=== PATIENT | female | born 1935 | race Caucasian/White ===

== ENCOUNTER 2020-07-11 14:45 | IRF | payer MEDICARE, SELFPAY ==
--- NOTE | ~2020-07-11 | CT_ITS ---
EXAMINATION: CT brain wo con DATE: 07/19/2020 15:05 INDICATION: Mental status change. TECHNIQUE: Computed tomography (CT) of the head was performed without intravenous contrast. The mA wa s adjusted according to patient size. Iterative reconstruction technique was employed. The dose-lengt h product was 605.33 mGy-cm. COMPARISON: None FINDINGS: There is a 5.4 x 3.7 cm hyperdense acute hematoma in right temporal occipital region with s urrounding low-attenuation vasogenic edema. There are scattered areas of low attenuation in the cereb ral white matter. There is a 10 mm hyperdense extra-axial mass inferior to left frontal lobe abutting the falx, consistent with a meningioma. There is no acute ischemic infarct. There is 4 mm leftward m idline shift at the foramen of Monro. The paranasal sinuses are clear. The mastoid air cells are norm al. There are likely changes of ocular lens replacement surgeries. IMPRESSION: 1. Acute intracerebral hematoma in right temporal occipital region. 2. Mild nonspecific cerebral white matter disease, which likely represents chronic small vessel ische beth disease. 3. 10 mm hyperdense extra-axial mass inferior to left frontal lobe abutting the falx, consistent with a meningioma. Reviewed, dictated and finalized at location A. IMPRESSION: 1. Acute intracerebral hematoma in right temporal occipital region. 2. 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 3. 10 mm hyperdense extra-axial mass inferior to left frontal lobe abutting the falx, consistent with a meningioma.
--- NOTE | 2020-07-11 15:13 | ADMGEN ---
This patient, Alba Renteria, was admitted to [facility] Room 224-02. Patient/family oriented to hospital policies and general routines including ID bracelet, bed and alarms, visiting hours, pain management, procedures, bathroom and other care routines, personal items, smoking policy, room service/diet, and visiting hours. Valuables list has been completed. Information on how to activate the Rapid Response Team has been discussed. Patient/Family are encouraged to report perceived risks to care and to ask questions if they do not understand what they are told or what they should do.
[2020-07-11 15:15] VITALS: BMI 20.1
[2020-07-11 15:16] VITALS: BP 153/62; PULSE 82; RESP 20; TEMP 37.1; O2SAT 96
[2020-07-11 17:00] VITALS: BMI 20.1
[2020-07-11 19:10] LABS: Prothrombin Time 12.6 Seconds (11.1-14.7)
[2020-07-11] MEDS: FLUOROMETHOLONE 0.1% OP SUSP 5 ML BTL 1 DROP EACH EYE (20:55)
[2020-07-11] MEDS: HEPARIN SODIUM 5,000 UNITS/ML VIAL 5000 UNITS SUB-Q (20:55)
[2020-07-11] MEDS: SENNOSIDES 8.6 MG TABLET PO (20:56)
[2020-07-11 22:00] VITALS: BP 127/63; PULSE 89; RESP 18; TEMP 37; O2SAT 96
[2020-07-11] MEDS: ACETAMINOPHEN 325 MG TABLET 650 MG PO (22:31)
[2020-07-12 04:37] LABS: Basophils Absolute Auto 0.1 K/mm3 (0.0-0.1); Basophils Percent Auto 0.8 % (0.2-1.2); Eosinophils Absolute Auto 0.2 K/mm3 (0-0.3); Hematocrit 39.5 % (37.0-47.0); Hemoglobin 13.6 g/dL (12.0-15.0); Immature Granulocyte Absolute 0.05 K/mm3 (0.00-0.031); Immature Granulocyte Percent A 0.6 % (0-0.5); Lymphocytes Absolute Auto 1.35 K/mm3 (0.9-3.2); Mean Corpuscular HGB Conc 34.4 g/dl (32-36); Mean Corpuscular Hemoglobin 31.3 pg (26-34); Mean Corpuscular Volume 90.8 fl (80-100); Mean Platelet Volume 8.5 fl (7.4-10.4); Monocytes Absolute Auto 1.1 K/mm3 (0.1-0.6); Monocytes Percent Auto 14.2 % (2.6-8.5); Neutrophils Absolute Auto 5.1 K/mm3 (1.3-6.7); Neutrophils Percent Auto 64.4 % (45.5-73.1); Platelet Count Result 309 k/mm3 (150-375); Red Blood Count 4.35 M/mm3 (4.2-5.4); Red Cell Distribution Width 13.5 % (11.5-14.5); White Blood Count 7.9 K/mm3 (4.5-10.0)
[2020-07-12 04:47] LABS: Prothrombin Time 12.4 Seconds (11.1-14.7)
[2020-07-12 04:53] LABS: Anion Gap 5 mmol/L (8-16); Blood Urea Nitrogen 11 mg/dL (7-17); Calcium 9.7 mg/dL (8.4-10.2); Carbon Dioxide 27 mmol/L (22-30); Chloride 96 mmol/L (98-107); Cholesterol 229 mg/dL (0-200); Estimated CRCL calculation 61 ml/min; Estimated Glomerular Filt Rate > 60; Glucose 113 mg/dL (65-105); HDL Direct 67 mg/dL; Potassium 4.1 mmol/L (3.4-5.0); Sodium 128 mmol/L (137-145); Triglycerides 172 mg/dL (<150)
[2020-07-12 05:04] LABS: LDL Cholesterol Direct 124 mg/dL
[2020-07-12 05:51] VITALS: BP 158/67; PULSE 90; RESP 14; TEMP 36.8; O2SAT 97
[2020-07-12] MEDS: polyethylene glycoL 3350 17 GM POWD.PACK PO (09:27)
[2020-07-12] MEDS: DOCUSATE SODIUM 100 MG CAPSULE PO (09:27)
[2020-07-12 09:28] VITALS: PULSE 88
[2020-07-12] MEDS: atenoloL 25 MG TABLET PO (09:28)
[2020-07-12] MEDS: POTASSIUM CHLORIDE 10 MEQ TABLET.ER PO (09:29)
[2020-07-12] MEDS: CHOLECALCIFEROL 1,000 UNITS TABLET 2000 UNITS PO (09:29)
[2020-07-12] MEDS: SENNOSIDES 8.6 MG TABLET PO ×2 (09:29→20:28)
[2020-07-12] MEDS: HEPARIN SODIUM 5,000 UNITS/ML VIAL 5000 UNITS SUB-Q ×2 (09:30→20:28)
[2020-07-12] MEDS: FLUOROMETHOLONE 0.1% OP SUSP 5 ML BTL 1 DROP EACH EYE ×2 (09:30→20:27)
[2020-07-12] MEDS: ROSUVASTATIN 5 MG TABLET PO (09:30)
[2020-07-12] MEDS: VITAMIN B COMPLEX/VIT C CAPSULE 1 EACH PO (09:30)
--- NOTE | 2020-07-12 10:00 | PM.IMHP ---
H&P: HPI History of Present Illness Date/Time: 07/12/20 12:19 Chief complaint: TRAUMATIC CLOSED HEAD INJURY Narrative: Alba Renteria is a 84 year old female She is admitted to our acute rehab with rehab impairment category of brain dysfunction/traumatic The etiologic diagnosis is large right parieto-occipital intracranial hemorrhage with intraventricular hemorrhage extension into the right lateral ventricle with left midline shift. The patient was seen [id number] at 10:00 a.m. on July 12, 2020 She is an 84-year-old right-handed woman with a past medical history of mechanical aortic valve replacement, and myocardial infarction who presented to a local hospital on June 28, 2020 with severe headache. Head CT showed a large right parieto-occipital intraparenchymal hemorrhage with intraventricular hemorrhage. The patient was in her usual state of health until the day prior to admission. Historically she had hit her forehead when she opened the car trunk a few days prior. On June 27, 2020 she started having headaches and associated nausea and vomiting. Then she had multiple episodes of emesis and had difficulty dialing her daughter's phone numbers. She was transferred to [facility] on June 28, 2020 for neurosurgery evaluation. [place] coma scale on arrival to [place] was 15. She was given vitamin K and Cardiology was consulted to discuss anticoagulation and recommended to stay off anticoagulation for 24 hours. However seems like the patient has not been restarted on the warfarin for the right reason which is on hold. Follow-up CT scan of the head on June 30 was stable on July [address] was slightly worsened but still stable. On July 03 her diet was advanced to dysphagia 3 with regular liquids. On July 05, 2020 brain MRI was performed which most likely was similar to the previous scans. The hospitalization was significant for cerebral edema nausea and vomiting hyponatremia hyperkalemia pain and hemiparesis. The cerebral edema is stable nausea and vomiting has resolved electrolyte imbalance since our monitor and related or rib beaded repeated as [place]. A endocrinology was consulted and recommended 1800 milliliter fluid stick garcia with strict I&O and BMP monitoring pain is controlled on oral and just is and she is requiring physical in a compression therapy for the significant left-sided hemiparesis. Physical examination continues to reveal neglect hemianopsia and hemiparesis on the left side the patient is discharged to us with subcutaneous heparin for DVT prophylaxis The patient has not traveled outside the [place] or had contact with someone who is ill that has traveled outside the [place] in the past 21 days. The patient has not traveled on an area of the [place] that is experiencing no transmission of the Coronavirus and has not had close personal contact with anyone that has. The patient does not have a fever. The patient is not experiencing lower respiratory illness symptoms Therapy was initiated the acute care facility and the patient was transferred to us from [facility] on June 21, 2020. The patient has had no major surgery in the 100 days prior to admission. The patient has had no falls in the past year. The patient has had no falls with injury in the past year. 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 The patient lives alone. The patient lives independently in a 1 level home with the threshold and 1 step to enter. She was completely independent prior with quad cane in the community and a Rollator at home. She was able to perform all her housekeeping laundry cooking and driving independently. Her son is a physical therapist and stated the patient will have whate
[2020-07-12 12:08] VITALS: BMI 20.1
[2020-07-12 14:00] VITALS: BP 116/41; PULSE 71; RESP 18; TEMP 37.3; O2SAT 95
--- NOTE | 2020-07-12 14:38 | RPD ---
Addendum entered by Ashleigh Houser 07/12/20 14:45: The patient presents to rehab with a large right parieto-occipital intracranial hemorrhage with intraventricular hemorrhage extension into the right lateral ventricule with left midline shift. Comorbidities include myocardial infarction, hypertension, left hemiparesis, left hemianopsia, left-side neglect, cerebral edema, hyperkalemia, and hyponatremia.The complexity of the patient's medical management, nursing, and therapy needs require an inpatient rehab hospital stay with a physician-led interdisciplinary team approach. The patient?s needs will be best met in an intensive program vs. at a lower level of care. The patient requires physician services for neurology services, medical oversight, and coordination of care. The patient needs physician monitoring and treatment of hyperkalemia, hyponatremia, monitoring for adverse reactions to new medications, monitoring of infection, and pain control. The patient requires nursing services for frequent neuro checks, anticoagulation therapy, medication management and education, pressure relief and skin care management, monitoring of labs, bowel and bladder training, and fall/safety precautions Original Note: INDIVIDUALIZED PLAN OF CARE FOR Alba Renteria Brief Synthesis of Pre-Admission Screen, Post-Admission Evaluation and Therapy Evaluations: The patient presents to rehab with a large right parieto-occipital intracranial hemorrhage with intraventricular hemorrhage extension into the right lateral ventricule with left midline shift. Comorbidities include myocardial infarction, hypertension, left hemiparesis, left hemianopsia, left-side neglect, cerebral edema, hyperkalemia, and hyponatremia. Deficits include:ADLs, Balance, Cognition, Endurance, Family Training/Education, Mobility, Pain Management, ROM, Safety, Speech, Strength, and Transfers. Dip Lube Operator/Case Management for: Discharge Planning and Patient/Family Counseling Physical Therapy: 5 days per week for 75 minutes. Treatments may include: Therapeutic Exercise, Gait Training, Neuromuscular Re-education, Transfer Training, Community Reintegration, Bed Mobility, Patient/Family Education, Wheelchair Mobility Group Therapy/Concurrent Therapy Rationales: -Improve attention span during functional activities in a distracted environment. -Enhance problem solving and/or adequate judgment skills during functional activities in a distracted environment. -Promote increased safety awareness in a distracted environment to reduce fall risk with functional tasks, transfers, and ambulation to allow a more safe, self-sufficient return to the home environment. -Improve dynamic balance skills to promote safety and independence with functional activities in a distracted environment for maximum gain. Occupational Therapy: 5 days per week for 75 minutes. Treatments may include: Therapeutic Exercise, Therapeutic Activity, Cognitive Training, Self-Care Transfer Training, Community Reintegration, Home Management, Patient/Family Education, Wheelchair Mobility Training, Energy Conservation Training Group Therapy/Concurrent Therapy Rationales: -Allow therapist to observe and teach generalization and carry-over of skills learned in individual therapy. -Enhance problem solving and sequencing skills during therapeutic activities in a distracted environment. -Promote increased safety awareness in a realistic setting to reduce fall risk with functional tasks due to visual and verbal distractions. -Increase functional level with ADLs, ADL transfers and use of adaptive equipment through therapeutic activities with others while promoting safety to allow a more safe, self-sufficient return home. Speech Therapy: 5 days per week for 30 minutes. Treatments may include: Dysphasia Therapy, Speech/Language/Communication Therapy, Cognitive Training, Patient/Family Education Group Therapy/Concurrent Therapy - Rationale: -Allow therapist to obs
[2020-07-12 21:22] VITALS: BP 143/46; PULSE 64; RESP 18; TEMP 36.9; O2SAT 99
[2020-07-13 05:51] VITALS: BP 133/51; PULSE 69; RESP 18; TEMP 36.4; O2SAT 98
[2020-07-13] MEDS: LIDOCAINE 5% PATCH 1 PATCH TOPICAL (09:59)
[2020-07-13 10:02] VITALS: PULSE 69
[2020-07-13] MEDS: ROSUVASTATIN 5 MG TABLET PO (10:02)
[2020-07-13] MEDS: SENNOSIDES 8.6 MG TABLET PO ×2 (10:02→20:41)
[2020-07-13] MEDS: POTASSIUM CHLORIDE 10 MEQ TABLET.ER PO (10:02)
[2020-07-13] MEDS: atenoloL 25 MG TABLET PO (10:02)
[2020-07-13] MEDS: DOCUSATE SODIUM 100 MG CAPSULE PO (10:03)
[2020-07-13] MEDS: VITAMIN B COMPLEX/VIT C CAPSULE 1 EACH PO (10:03)
[2020-07-13] MEDS: HEPARIN SODIUM 5,000 UNITS/ML VIAL 5000 UNITS SUB-Q ×2 (10:03→20:40)
[2020-07-13] MEDS: CHOLECALCIFEROL 1,000 UNITS TABLET 2000 UNITS PO (10:03)
[2020-07-13] MEDS: FLUOROMETHOLONE 0.1% OP SUSP 5 ML BTL 1 DROP EACH EYE ×2 (10:04→20:41)
[2020-07-13] MEDS: OPTI-GEN TAB 1 TABLET PO (10:05)
--- NOTE | 2020-07-13 12:47 | WPDNEURORHBP ---
Subjective Date/time seen: 07/13/20 12:47 84 years old lady admitted to the acute rehab with the category of brain dysfunction traumatic in nature and with large right parieto-occipital intracranial bleed extension into the intraventricular area particularly right lateral ventricle and with resultant left midline shift in addition to the history of 1. Mechanical aortic valve replacement 2. Myocardial infarction. Documented cerebral edema by MRI with fluid restriction at present receiving compression therapy and physical therapy for left hemiparesis Review of Systems Review of Systems: All systems reviewed & are unremarkable except as noted in HPI and below Functional Status Ambulation Ability Ability to Ambulate 10 Feet: Moderate Assistance X 1 Ambulation Assistive Devices: Walker, Wheeled Transfers Ability Ability to Transfer In/Out of Chair: Moderate Assistance X 1 Exam Narrative: Exam Narrative: examination reveals her to be awake alert cooperative in no obvious acute distress with bilateral decreased visual acuity secondary to corneal transplant though she was unable to recall most of the incidence and past neck is supple with no JVD no meningeal signs heart regular with murmur lungs clear with no crepitations or rhonchi abdomen soft nontender normal bowel sounds neurologically she is awake alert has difficulties in cognition has left-sided homonomous hemianopia and left hemiparesis Objective Data Vital Signs Vital Signs: Vital Signs - 24 hr 07/12/20 14:00 07/12/20 21:22 07/13/20 05:51 Temperature 37.3 C 36.9 C 36.4 C Pulse Rate 71 64 69 Respiratory Rate 18 18 18 Blood Pressure 116/41 L 143/46 H 133/51 L Pulse Oximetry 95 99 98 07/13/20 10:02 Temperature Pulse Rate 69 Respiratory Rate Blood Pressure Pulse Oximetry Intake/Output Intake/Output: Intake & Output 07/10/20 07/11/20 07/12/20 07/13/20 23:59 23:59 23:59 23:59 Intake Total 120 720 120 Balance 120 720 120 Meds/Results Medications: Active Medications Generic Name Dose Route Start Last Admin Trade Name Freq PRN Reason Stop Dose Admin Acetaminophen 650 mg 07/11/20 18:25 07/11/20 22:31 Tylenol Tablet PO 650 mg Q6H PRN Administration Pain (Scale Score 1-3) Artificial Tears 1 drop 07/11/20 18:25 EACH EYE BID PRN Dry Eye(S) Atenolol 25 mg 07/12/20 09:00 07/13/20 10:02 Tenormin PO 25 mg DAILY ARI Administration Docusate Sodium 100 mg 07/12/20 09:00 07/13/20 10:03 Colace Capsule PO 100 mg DAILY ARI Administration Fluorometholone 1 drop 07/11/20 21:00 07/13/20 10:04 Fml Liquifilm 0.1% Op Susp EACH EYE 1 drop Q12HR ARI Administration Heparin Sodium (Porcine) 5,000 units 07/11/20 21:00 07/13/20 10:03 Heparin Sodium SUB-Q 5,000 units Q12HR ARI Administration Lidocaine 1 patch 07/11/20 18:25 07/13/20 09:59 Lidoderm TOPICAL 1 patch DAILY PRN Administration Pain Multivitamins/Minerals 1 tablet 07/13/20 09:00 07/13/20 10:05 Ocuvite PO 1 tablet QAM ARI Administration Nitroglycerin 0.4 mg 07/11/20 18:25 Nitrostat Subl 0.4 Mg (1/150) SUBLINGUAL Q5MIN PRN Chest Pain Oxycodone HCl 2.5 mg 07/11/20 18:25 Roxicodone Ir Tablet PO Q4H PRN Pain, Moderate Polyethylene Glycol 17 gm 07/12/20 09:00 07/13/20 10:03 Miralax PO Not Given DAILY [facility] Potassium Chloride 10 meq 07/12/20 09:00 07/13/20 10:02 Kcl Tablet PO 10 meq DAILY ARI Administration Rosuvastatin Calcium 5 mg 07/12/20 09:00 07/13/20 10:02 Crestor PO 5 mg DAILY ARI Administration Senna 8.6 mg 07/11/20 21:00 07/13/20 10:02 Senokot Tablet PO 8.6 mg Q12HR [facility] Administration Vitamin B Complex/Vitamin C 1 each 07/12/20 09:00 07/13/20 10:03 Allbee W/C PO 08/11/20 09:01 1 each DAILY [facility] Administration Vitamin D 2,000 units 07/12/20 09:00 07/13/20 10:03 Vitamin D PO 2,000 units DAILY [facility] Ad
[2020-07-13 14:00] VITALS: BP 122/50; PULSE 61; RESP 18; TEMP 37.1; O2SAT 96
[2020-07-13 21:08] VITALS: BP 146/43; PULSE 61; RESP 18; TEMP 36.6; O2SAT 97
[2020-07-14 05:13] VITALS: BP 146/50; PULSE 67; RESP 18; TEMP 36.9; O2SAT 97
[2020-07-14 07:33] VITALS: O2SAT 93
[2020-07-14 08:38] VITALS: PULSE 67
[2020-07-14] MEDS: atenoloL 25 MG TABLET PO (08:38)
[2020-07-14] MEDS: CHOLECALCIFEROL 1,000 UNITS TABLET 2000 UNITS PO (08:38)
[2020-07-14] MEDS: DOCUSATE SODIUM 100 MG CAPSULE PO (08:39)
[2020-07-14] MEDS: ROSUVASTATIN 5 MG TABLET PO (08:39)
[2020-07-14] MEDS: SENNOSIDES 8.6 MG TABLET PO ×2 (08:39→22:10)
[2020-07-14] MEDS: VITAMIN B COMPLEX/VIT C CAPSULE 1 EACH PO (08:39)
[2020-07-14] MEDS: POTASSIUM CHLORIDE 10 MEQ TABLET.ER PO (08:39)
[2020-07-14] MEDS: OPTI-GEN TAB 1 TABLET PO (08:39)
[2020-07-14] MEDS: FLUOROMETHOLONE 0.1% OP SUSP 5 ML BTL 1 DROP EACH EYE ×2 (08:40→22:10)
[2020-07-14] MEDS: HEPARIN SODIUM 5,000 UNITS/ML VIAL 5000 UNITS SUB-Q ×2 (08:40→22:10)
[2020-07-14] MEDS: ACETAMINOPHEN 325 MG TABLET 650 MG PO (08:42)
[2020-07-14] MEDS: polyethylene glycoL 3350 17 GM POWD.PACK PO (08:50)
[2020-07-14 14:00] VITALS: BP 102/41; PULSE 64; RESP 18; TEMP 37.3; O2SAT 97
[2020-07-14 22:00] VITALS: BP 154/59; PULSE 64; RESP 18; TEMP 36.5; O2SAT 99
[2020-07-15 06:00] VITALS: BP 138/77; PULSE 83; RESP 18; TEMP 36.6; O2SAT 98
[2020-07-15 08:54] VITALS: PULSE 83
[2020-07-15] MEDS: CHOLECALCIFEROL 1,000 UNITS TABLET 2000 UNITS PO (08:54)
[2020-07-15] MEDS: atenoloL 25 MG TABLET PO (08:54)
[2020-07-15] MEDS: OPTI-GEN TAB 1 TABLET PO (08:55)
[2020-07-15] MEDS: HEPARIN SODIUM 5,000 UNITS/ML VIAL 5000 UNITS SUB-Q ×2 (08:55→21:34)
[2020-07-15] MEDS: FLUOROMETHOLONE 0.1% OP SUSP 5 ML BTL 1 DROP EACH EYE ×2 (08:55→21:33)
[2020-07-15] MEDS: SENNOSIDES 8.6 MG TABLET PO ×2 (08:55→21:34)
[2020-07-15] MEDS: polyethylene glycoL 3350 17 GM POWD.PACK PO (08:55)
[2020-07-15] MEDS: ROSUVASTATIN 5 MG TABLET PO (08:55)
[2020-07-15] MEDS: POTASSIUM CHLORIDE 10 MEQ TABLET.ER PO (08:55)
[2020-07-15] MEDS: DOCUSATE SODIUM 100 MG CAPSULE PO (08:55)
[2020-07-15] MEDS: VITAMIN B COMPLEX/VIT C CAPSULE 1 EACH PO (08:56)
--- NOTE | 2020-07-15 10:25 | WPDNEURORHBP ---
Subjective Date/time seen: 07/15/20 10:25 84 years old lady with traumatic brain dysfunction and large right parieto-occipital intracranial bleed extending into the ventricular system also with history of underlying mechanical aortic valve, myocardial infarction receiving physical therapy for left hemiparesis walking with moderate assistance of 1/10 feet using the wheel walker Review of Systems Review of Systems: All systems reviewed & are unremarkable except as noted in HPI and below Functional Status Ambulation Ability Ability to Ambulate 10 Feet: Moderate Assistance X 1 Ambulation Assistive Devices: Walker, Wheeled Transfers Ability Ability to Transfer In/Out of Chair: Moderate Assistance X 1 Exam Narrative: Exam Narrative: examination reveals her to be awake alert cooperative able to follow the instruction ear nose throat examination normal neck is supple heart regular lungs clear neurological examination showed reveals her to have left hemiparesis with left homonymous hemianopia but she is very cooperative and involved in the physical therapy Objective Data Vital Signs Vital Signs: Vital Signs - 24 hr 07/14/20 14:00 07/14/20 22:00 07/15/20 06:00 Temperature 37.3 C 36.5 C 36.6 C Pulse Rate 64 64 83 Respiratory Rate 18 18 18 Blood Pressure 102/41 L 154/59 H 138/77 Pulse Oximetry 97 99 98 07/15/20 08:54 Temperature Pulse Rate 83 Respiratory Rate Blood Pressure Pulse Oximetry Intake/Output Intake/Output: Intake & Output 07/12/20 07/13/20 07/14/20 07/15/20 23:59 23:59 23:59 23:59 Intake Total 720 360 80 100 Balance 720 360 80 100 Meds/Results Medications: Active Medications Generic Name Dose Route Start Last Admin Trade Name Albaroq PRN Reason Stop Dose Admin Acetaminophen 650 mg 07/11/20 18:25 07/14/20 08:42 Tylenol Tablet PO 650 mg Q6H PRN Administration Pain (Scale Score 1-3) Artificial Tears 1 drop 07/11/20 18:25 EACH EYE BID PRN Dry Eye(S) Atenolol 25 mg 07/12/20 09:00 07/15/20 08:54 Tenormin PO 25 mg DAILY ARI Administration Docusate Sodium 100 mg 07/12/20 09:00 07/15/20 08:55 Colace Capsule PO 100 mg DAILY ARI Administration Fluorometholone 1 drop 07/11/20 21:00 07/15/20 08:55 Fml Liquifilm 0.1% Op Susp EACH EYE 1 drop Q12HR ARI Administration Heparin Sodium (Porcine) 5,000 units 07/11/20 21:00 07/15/20 08:55 Heparin Sodium SUB-Q 5,000 units Q12HR ARI Administration Lidocaine 1 patch 07/11/20 18:25 07/13/20 09:59 Lidoderm TOPICAL 1 patch DAILY PRN Administration Pain Multivitamins/Minerals 1 tablet 07/13/20 09:00 07/15/20 08:55 Ocuvite PO 1 tablet QAM ARI Administration Nitroglycerin 0.4 mg 07/11/20 18:25 Nitrostat Subl 0.4 Mg (1/150) SUBLINGUAL Q5MIN PRN Chest Pain Oxycodone HCl 2.5 mg 07/11/20 18:25 Roxicodone Ir Tablet PO Q4H PRN Pain, Moderate Polyethylene Glycol 17 gm 07/12/20 09:00 07/15/20 08:55 Miralax PO 17 gm DAILY ARI Administration Potassium Chloride 10 meq 07/12/20 09:00 07/15/20 08:55 Kcl Tablet PO 10 meq DAILY ARI Administration Rosuvastatin Calcium 5 mg 07/12/20 09:00 07/15/20 08:55 Crestor PO 5 mg DAILY ARI Administration Senna 8.6 mg 07/11/20 21:00 07/15/20 08:55 Senokot Tablet PO 8.6 mg Q12HR ARI Administration Vitamin B Complex/Vitamin C 1 each 07/12/20 09:00 07/15/20 08:56 Allbee W/C PO 08/11/20 09:01 1 each DAILY ARI Administration Vitamin D 2,000 units 07/12/20 09:00 07/15/20 08:54 Vitamin D PO 2,000 units DAILY ARI Administration Warfarin Sodium 6 mg 07/12/20 09:00 Coumadin PO DAILY ARI Progress Note: A&P Assessment and Plan (1) Hyponatremia: Code(s): E87.1 - Hypo-osmolality and hyponatremia Status: Acute (2) Hypertension: Code(s): I10 - Essential (primary) hypertension Status: Acute (3) Homo
--- NOTE | 2020-07-15 13:32 | PCDIET ---
Nutrition Follow-Up Complete: Nutrition Diagnosis: Inadequate oral intake r/t reduced appetite as evidenced by 98% of IBW and PO intake of 10% Nutrition Goal: Intake of 50% of meals and supplements to maintain wt Goal met. Patient consuming 75-100% of most meals on regular diet with 800mL fluid restriction. Patient c/o Ensure being too sweet and has not been taking it. Recommend stopping Ensure Compact due to patient refusal which will also allow increased intake of other fluids. Last recorded weight is 53.3 kg. Recommend obtaining new weight. Bowel Motility: Last BM on 07/14/20 per nursing flowsheet. Labs Reviewed: No new labs available. Meds Noted: Colace, Heparin, Ocuvite, Miralax, KCl, Senna, Vitamin B Complex, Vitamin D, Coumadin Additional Notes: No documented skin breakdown. Will continue to monitor with same goal. Nutrition Monitoring and Evaluation: Follow up in 5 days.
[2020-07-15 14:00] VITALS: BP 119/86; PULSE 72; RESP 16; TEMP 37.2; O2SAT 96
[2020-07-15] MEDS: ACETAMINOPHEN 325 MG TABLET 650 MG PO (17:42)
[2020-07-15 21:27] VITALS: BP 132/58; PULSE 59; RESP 18; TEMP 36.8; O2SAT 98
[2020-07-15] MEDS: oxyCODONE HCL (*CRX) 2.5 MG TAB IR PO (21:38)
[2020-07-16 05:11] VITALS: BP 146/48; PULSE 72; RESP 18; TEMP 36.8; O2SAT 99
[2020-07-16] MEDS: OPTI-GEN TAB 1 TABLET PO (08:38)
[2020-07-16] MEDS: DOCUSATE SODIUM 100 MG CAPSULE PO (08:38)
[2020-07-16] MEDS: CHOLECALCIFEROL 1,000 UNITS TABLET 2000 UNITS PO (08:38)
[2020-07-16] MEDS: SENNOSIDES 8.6 MG TABLET PO ×2 (08:38→20:53)
[2020-07-16 08:39] VITALS: PULSE 72
[2020-07-16] MEDS: polyethylene glycoL 3350 17 GM POWD.PACK PO (08:39)
[2020-07-16] MEDS: HEPARIN SODIUM 5,000 UNITS/ML VIAL 5000 UNITS SUB-Q ×2 (08:39→20:53)
[2020-07-16] MEDS: ROSUVASTATIN 5 MG TABLET PO (08:39)
[2020-07-16] MEDS: atenoloL 25 MG TABLET PO (08:39)
[2020-07-16] MEDS: POTASSIUM CHLORIDE 10 MEQ TABLET.ER PO (08:39)
[2020-07-16] MEDS: FLUOROMETHOLONE 0.1% OP SUSP 5 ML BTL 1 DROP EACH EYE ×2 (08:39→20:53)
[2020-07-16] MEDS: VITAMIN B COMPLEX/VIT C CAPSULE 1 EACH PO (08:39)
[2020-07-16] MEDS: ACETAMINOPHEN 325 MG TABLET 650 MG PO (11:58)
[2020-07-16 14:00] VITALS: BP 120/54; PULSE 58; RESP 16; TEMP 36.5; O2SAT 98
--- NOTE | 2020-07-16 14:39 | WPDNEURORHBP ---
Subjective Date/time seen: 07/16/20 14:39 Interval history: this 84-year-old woman is here because of traumatic closed head injury she has the doing fairly well decent the left-sided weakness and left-sided homonymous hemianopsia is improving she denies any headache nausea vomiting chest pain or shortness of breath the lab analysis fairly good this was shared to her family also Review of Systems Review of Systems: All systems reviewed & are unremarkable except as noted in HPI and below Functional Status Ambulation Ability Ability to Ambulate 10 Feet: Contact Guard Ability to Ambulate 50 Feet With 2 Turns: Contact Guard Ability to Ambulate 150 Feet: Contact Guard Ambulation Assistive Devices: Walker, Wheeled Transfers Ability Ability to Transfer In/Out of Chair: Moderate Assistance X 1 Exam Const: General: comfortable and no acute distress HENMT: General nose exam: Normal nares present Mouth: Yes moist mucous membranes Eyes: General: appearance normal, both eyes and all related structures Neck: Neck: supple and no JVD Resp: Effort & Inspection: normal respiratory effort Auscultation: clear to auscultation bilaterally Cardio: Rate: regular rate Rhythm: regular rhythm GI: GI Palp: Yes Soft to palpation Auscultation: normal bowel sounds Skin: General skin exam: normal color and no rashes or lesions noted Neuro: Other: patient is awake alert following commands left-sided deficit is improving Extrem: General: normal to inspection Psych: Mental Status: mental status grossly normal Objective Data Vital Signs Vital Signs: Vital Signs - 24 hr 07/15/20 21:27 07/16/20 05:11 07/16/20 08:39 Temperature 36.8 C 36.8 C Pulse Rate 59 L 72 72 Respiratory Rate 18 18 Blood Pressure 132/58 L 146/48 H Pulse Oximetry 98 99 07/16/20 14:00 Temperature 36.5 C Pulse Rate 58 L Respiratory Rate 16 Blood Pressure 120/54 L Pulse Oximetry 98 Intake/Output Intake/Output: Intake & Output 07/13/20 07/14/20 07/15/20 07/16/20 23:59 23:59 23:59 23:59 Intake Total 360 80 240 240 Balance 360 80 240 240 Meds/Results Medications: Active Medications Generic Name Dose Route Start Last Admin Trade Name Freq PRN Reason Stop Dose Admin Acetaminophen 650 mg 07/11/20 18:25 07/16/20 11:58 Tylenol Tablet PO 650 mg Q6H PRN Administration Pain (Scale Score 1-3) Artificial Tears 1 drop 07/11/20 18:25 EACH EYE BID PRN Dry Eye(S) Atenolol 25 mg 07/12/20 09:00 07/16/20 08:39 Tenormin PO 25 mg DAILY ARI Administration Docusate Sodium 100 mg 07/12/20 09:00 07/16/20 08:38 Colace Capsule PO 100 mg DAILY ARI Administration Fluorometholone 1 drop 07/11/20 21:00 07/16/20 08:39 Fml Liquifilm 0.1% Op Susp EACH EYE 1 drop Q12HR ARI Administration Heparin Sodium (Porcine) 5,000 units 07/11/20 21:00 07/16/20 08:39 Heparin Sodium SUB-Q 5,000 units Q12HR ARI Administration Lidocaine 1 patch 07/11/20 18:25 07/13/20 09:59 Lidoderm TOPICAL 1 patch DAILY PRN Administration Pain Multivitamins/Minerals 1 tablet 07/13/20 09:00 07/16/20 08:38 Ocuvite PO 1 tablet QAM ARI Administration Nitroglycerin 0.4 mg 07/11/20 18:25 Nitrostat Subl 0.4 Mg (1/150) SUBLINGUAL Q5MIN PRN Chest Pain Oxycodone HCl 2.5 mg 07/11/20 18:25 07/15/20 21:38 Roxicodone Ir Tablet PO 2.5 mg Q4H PRN Administration Pain, Moderate Polyethylene Glycol 17 gm 07/12/20 09:00 07/16/20 08:39 Miralax PO 17 gm DAILY ARI Administration Potassium Chloride 10 meq 07/12/20 09:00 07/16/20 08:39 Kcl Tablet PO 10 meq DAILY ARI Administration Rosuvastatin Calcium 5 mg 07/12/20 09:00 07/16/20 08:39 Crestor PO 5 mg DAILY ARI Administration Senna 8.6 mg 07/11/20 21:00 07/16/20 08:38 Senokot Tablet PO 8.6 mg Q12HR ARI Administration Vitamin B Complex/Vitamin C 1 each 07/12/20 09:00 07/16/20 08:39
[2020-07-16] MEDS: oxyCODONE HCL (*CRX) 2.5 MG TAB IR PO (20:53)
[2020-07-16 21:31] VITALS: BP 139/63; PULSE 67; RESP 18; TEMP 36.9; O2SAT 96
[2020-07-17 06:00] VITALS: BP 161/58; PULSE 73; RESP 18; TEMP 36.7; O2SAT 99
[2020-07-17 09:14] VITALS: PULSE 73
[2020-07-17] MEDS: atenoloL 25 MG TABLET PO (09:14)
[2020-07-17] MEDS: FLUOROMETHOLONE 0.1% OP SUSP 5 ML BTL 1 DROP EACH EYE ×2 (09:15→21:45)
[2020-07-17] MEDS: CHOLECALCIFEROL 1,000 UNITS TABLET 2000 UNITS PO (09:15)
[2020-07-17] MEDS: DOCUSATE SODIUM 100 MG CAPSULE PO (09:15)
[2020-07-17] MEDS: HEPARIN SODIUM 5,000 UNITS/ML VIAL 5000 UNITS SUB-Q ×2 (09:16→21:45)
[2020-07-17] MEDS: polyethylene glycoL 3350 17 GM POWD.PACK PO (09:16)
[2020-07-17] MEDS: OPTI-GEN TAB 1 TABLET PO (09:16)
[2020-07-17] MEDS: ROSUVASTATIN 5 MG TABLET PO (09:16)
[2020-07-17] MEDS: POTASSIUM CHLORIDE 10 MEQ TABLET.ER PO (09:16)
[2020-07-17] MEDS: SENNOSIDES 8.6 MG TABLET PO ×2 (09:17→21:46)
[2020-07-17] MEDS: VITAMIN B COMPLEX/VIT C CAPSULE 1 EACH PO (09:17)
[2020-07-17 14:00] VITALS: BP 129/48; PULSE 68; RESP 20; TEMP 37.1; O2SAT 98
--- NOTE | 2020-07-17 15:08 | WPDNEURORHBP ---
Subjective Date/time seen: 07/17/20 15:08 Interval history: this 84-year-old woman is here because of traumatic closed head injury/intracranial hemorrhage she denies any headache nausea vomiting chest pain or shortness of breath and the weakness is improving However she is complaining of fever blister and she is asking for Zocor ox as it has been prescribed in the past by her primary care physician and also will treated locally Review of Systems Review of Systems: All systems reviewed & are unremarkable except as noted in HPI and below Functional Status Ambulation Ability Ability to Ambulate 10 Feet: Independent Ability to Ambulate 50 Feet With 2 Turns: Independent Ability to Ambulate 150 Feet: Standby Assistance Ambulation Assistive Devices: Walker, Wheeled Transfers Ability Ability to Transfer In/Out of Chair: Moderate Assistance X 1 Exam Const: General: comfortable and no acute distress HENMT: General nose exam: Normal nares present Mouth: Yes moist mucous membranes Other: bilateral decreased hearing Eyes: Other: the patient is status post corneal transplant and has a decreased visual acuity however this is stable Neck: Neck: supple and no JVD Resp: Effort & Inspection: normal respiratory effort Auscultation: clear to auscultation bilaterally Cardio: Rate: regular rate Rhythm: regular rhythm GI: GI Palp: Yes Soft to palpation Auscultation: normal bowel sounds Skin: General skin exam: normal color and no rashes or lesions noted Neuro: Other: patient is awake alert better than the previous days however still she does not feel good her weakness on the left side is improving Extrem: General: normal to inspection Psych: Affect: Anxious affect present Other: decreased short-term memory deficit however she does she need to have an anxious affect Objective Data Vital Signs Vital Signs: Vital Signs - 24 hr 07/16/20 21:31 07/17/20 06:00 07/17/20 09:14 Temperature 36.9 C 36.7 C Pulse Rate 67 73 73 Respiratory Rate 18 18 Blood Pressure 139/63 161/58 H Pulse Oximetry 96 99 Intake/Output Intake/Output: Intake & Output 07/14/20 07/15/20 07/16/20 07/17/20 23:59 23:59 23:59 23:59 Intake Total 80 240 480 360 Balance 80 240 480 360 Meds/Results Medications: Active Medications Generic Name Dose Route Start Last Admin Trade Name Freq PRN Reason Stop Dose Admin Acetaminophen 650 mg 07/11/20 18:25 07/16/20 11:58 Tylenol Tablet PO 650 mg Q6H PRN Administration Pain (Scale Score 1-3) Acyclovir 400 mg 07/17/20 17:00 Zovirax Po PO TID [facility] Artificial Tears 1 drop 07/11/20 18:25 EACH EYE BID PRN Dry Eye(S) Atenolol 25 mg 07/12/20 09:00 07/17/20 09:14 Tenormin PO 25 mg DAILY ARI Administration Docusate Sodium 100 mg 07/12/20 09:00 07/17/20 09:15 Colace Capsule PO 100 mg DAILY ARI Administration Fluorometholone 1 drop 07/11/20 21:00 07/17/20 09:15 Fml Liquifilm 0.1% Op Susp EACH EYE 1 drop Q12HR ARI Administration Heparin Sodium (Porcine) 5,000 units 07/11/20 21:00 07/17/20 09:16 Heparin Sodium SUB-Q 5,000 units Q12HR ARI Administration Lidocaine 1 patch 07/11/20 18:25 07/13/20 09:59 Lidoderm TOPICAL 1 patch DAILY PRN Administration Pain Multivitamins/Minerals 1 tablet 07/13/20 09:00 07/17/20 09:16 Ocuvite PO 1 tablet QAM ARI Administration Nitroglycerin 0.4 mg 07/11/20 18:25 Nitrostat Subl 0.4 Mg (1/150) SUBLINGUAL Q5MIN PRN Chest Pain Oxycodone HCl 2.5 mg 07/11/20 18:25 07/16/20 20:53 Roxicodone Ir Tablet PO 2.5 mg Q4H PRN Administration Pain, Moderate Polyethylene Glycol 17 gm 07/12/20 09:00 07/17/20 09:16 Miralax PO 17 gm DAILY ARI Administration Potassium Chloride 10 meq 07/12/20 09:00 07/17/20 09:16 Kcl Tablet PO 10 meq DAILY ARI Administration Rosuvastatin Calcium 5 mg 07/12/20 09:00 07/17/20 09:16 Farhan
[2020-07-17] MEDS: ACYCLOVIR 400 MG TABLET PO (18:00)
[2020-07-17 21:45] VITALS: BP 131/57; PULSE 62; RESP 18; TEMP 36.9; O2SAT 94
[2020-07-18 05:16] VITALS: BP 143/45; PULSE 71; RESP 18; TEMP 36.6; O2SAT 96
[2020-07-18] MEDS: OPTI-GEN TAB 1 TABLET PO (09:05)
[2020-07-18] MEDS: FLUOROMETHOLONE 0.1% OP SUSP 5 ML BTL 1 DROP EACH EYE ×2 (09:05→20:59)
[2020-07-18] MEDS: POTASSIUM CHLORIDE 10 MEQ TABLET.ER PO (09:05)
[2020-07-18] MEDS: VITAMIN B COMPLEX/VIT C CAPSULE 1 EACH PO (09:06)
[2020-07-18] MEDS: ROSUVASTATIN 5 MG TABLET PO (09:06)
[2020-07-18] MEDS: HEPARIN SODIUM 5,000 UNITS/ML VIAL 5000 UNITS SUB-Q ×2 (09:06→20:59)
[2020-07-18 09:07] VITALS: PULSE 71
[2020-07-18] MEDS: atenoloL 25 MG TABLET PO (09:07)
[2020-07-18] MEDS: ACYCLOVIR 400 MG TABLET PO ×3 (09:07→17:16)
[2020-07-18] MEDS: ACETAMINOPHEN 325 MG TABLET 650 MG PO (09:09)
[2020-07-18] MEDS: CHOLECALCIFEROL 1,000 UNITS TABLET 2000 UNITS PO (11:02)
[2020-07-18 14:00] VITALS: BP 117/54; PULSE 60; RESP 16; TEMP 37.1; O2SAT 98
--- NOTE | 2020-07-18 15:58 | PCPTNOTE ---
Alba Renteria was evaluated for a wheeled walker on 07/18/2020 by this physical therapist press operator assistant. The wheeled walker will resolve patient's mobility limitations and will be used for ADL's within the home. The patient can safely use the wheeled walker. ?The wheeled walker will resolve the patient?s mobility deficits, including impaired balance, impaired vision, decreased endurance and strength. Alia Packer, DATA ENTRY ASSISTANT
[2020-07-18 22:00] VITALS: BP 125/51; PULSE 104; RESP 17; TEMP 37.1; O2SAT 97
[2020-07-19 00:37] VITALS: PULSE 70
[2020-07-19] MEDS: ACETAMINOPHEN 325 MG TABLET 650 MG PO (01:10)
[2020-07-19 05:09] LABS: Basophils Percent Auto 0.7 % (0.2-1.2); Eosinophils Absolute Auto 0.3 K/mm3 (0-0.3); Eosinophils Percent Auto 5.3 % (0-4.4); Hematocrit 38.1 % (37.0-47.0); Hemoglobin 12.6 g/dL (12.0-15.0); Immature Granulocyte Absolute 0.04 K/mm3 (0.00-0.031); Immature Granulocyte Percent A 0.7 % (0-0.5); Lymphocytes Absolute Auto 1.22 K/mm3 (0.9-3.2); Lymphocytes Percent Auto 20.8 % (18.3-44.2); Mean Corpuscular HGB Conc 33.1 g/dl (32-36); Mean Corpuscular Hemoglobin 31.2 pg (26-34); Mean Corpuscular Volume 94.3 fl (80-100); Monocytes Percent Auto 17.7 % (2.6-8.5); Neutrophils Absolute Auto 3.2 K/mm3 (1.3-6.7); Neutrophils Percent Auto 54.8 % (45.5-73.1); Platelet Count Result 183 k/mm3 (150-375); Red Blood Count 4.04 M/mm3 (4.2-5.4); White Blood Count 5.9 K/mm3 (4.5-10.0)
[2020-07-19 05:23] LABS: Anion Gap 4 mmol/L (8-16); Blood Urea Nitrogen 9 mg/dL (7-17); Calcium 9.4 mg/dL (8.4-10.2); Carbon Dioxide 31 mmol/L (22-30); Chloride 100 mmol/L (98-107); Estimated CRCL calculation 45 ml/min; Estimated Glomerular Filt Rate > 60; Glucose 95 mg/dL (65-105); Potassium 4.7 mmol/L (3.4-5.0); Sodium 135 mmol/L (137-145)
[2020-07-19 06:00] VITALS: BP 154/49; PULSE 74; RESP 18; TEMP 36.7; O2SAT 96
[2020-07-19 08:40] VITALS: PULSE 74
[2020-07-19] MEDS: FLUOROMETHOLONE 0.1% OP SUSP 5 ML BTL 1 DROP EACH EYE (08:40)
[2020-07-19] MEDS: CHOLECALCIFEROL 1,000 UNITS TABLET 2000 UNITS PO (08:40)
[2020-07-19] MEDS: atenoloL 25 MG TABLET PO (08:40)
[2020-07-19] MEDS: POTASSIUM CHLORIDE 10 MEQ TABLET.ER PO (08:40)
[2020-07-19] MEDS: ROSUVASTATIN 5 MG TABLET PO (08:40)
[2020-07-19] MEDS: HEPARIN SODIUM 5,000 UNITS/ML VIAL 5000 UNITS SUB-Q (08:41)
[2020-07-19] MEDS: VITAMIN B COMPLEX/VIT C CAPSULE 1 EACH PO (08:41)
[2020-07-19] MEDS: ACYCLOVIR 400 MG TABLET PO ×2 (08:41→12:40)
[2020-07-19] MEDS: OPTI-GEN TAB 1 TABLET PO (08:41)
--- NOTE | 2020-07-19 12:27 | WPDNEURORHBP ---
Subjective Date/time seen: 07/19/20 12:27 Interval history: this 84-year-old woman came to us with right-sided intracranial hemorrhage in a background of of having had fall while being on warfarin for status post aortic valve replacement The patient denies any headache nausea vomiting chest pain shortness of breath fever chills sore throat She does have a left-sided neglect left-sided hemiparesis and also decreased visual acuity related to the bilateral corneal transplant Her morphine and aspirin is on hold as per recommendation rightly so from the physicians at the tertiary care facility through July 25, 2020 Review of Systems Review of Systems: All systems reviewed & are unremarkable except as noted in HPI and below Functional Status Ambulation Ability Ability to Ambulate 10 Feet: Standby Assistance Ability to Ambulate 50 Feet With 2 Turns: Standby Assistance Ability to Ambulate 150 Feet: Standby Assistance Ambulation Assistive Devices: Walker, Wheeled Transfers Ability Ability to Transfer In/Out of Chair: Moderate Assistance X 1 Exam Const: General: comfortable and no acute distress HENMT: General nose exam: Normal nares present Mouth: Yes moist mucous membranes Eyes: Other: status post corneal transplants with mild decreased visual acuity Neck: Neck: supple and no JVD Resp: Effort & Inspection: normal respiratory effort Auscultation: clear to auscultation bilaterally Cardio: Rate: regular rate Rhythm: regular rhythm Other: cardiac murmur as always from the previous aortic valve replacement GI: GI Palp: Yes Soft to palpation Auscultation: normal bowel sounds Skin: General skin exam: normal color and no rashes or lesions noted Neuro: Other: patient is awake alert well oriented not any distress with left-sided weakness and improving left-sided neglect and left-sided hemianopsia Is still needing assistance in all the activities of daily living Extrem: General: normal to inspection Psych: Affect: Anxious affect present Other: cognitive deficit related to intracranial hemorrhage which in fact is improved she is more interactive and at times smiling Objective Data Vital Signs Vital Signs: Vital Signs - 24 hr 07/18/20 14:00 07/18/20 22:00 07/19/20 00:37 Temperature 37.1 C 37.1 C Pulse Rate 60 104 H 70 Respiratory Rate 16 17 Blood Pressure 117/54 L 125/51 L Pulse Oximetry 98 97 07/19/20 06:00 07/19/20 08:40 Temperature 36.7 C Pulse Rate 74 74 Respiratory Rate 18 Blood Pressure 154/49 H Pulse Oximetry 96 Intake/Output Intake/Output: Intake & Output 07/16/20 07/17/20 07/18/20 07/19/20 23:59 23:59 23:59 23:59 Intake Total 480 740 440 480 Output Total 300 Balance 480 740 440 180 Meds/Results Medications: Active Medications Generic Name Dose Route Start Last Admin Trade Name Freq PRN Reason Stop Dose Admin Acetaminophen 650 mg 07/11/20 18:25 07/19/20 01:10 Tylenol Tablet PO 650 mg Q6H PRN Administration Pain (Scale Score 1-3) Acyclovir 400 mg 07/17/20 17:00 07/19/20 08:41 Zovirax Po PO 07/22/20 13:01 400 mg TID ARI Administration Artificial Tears 1 drop 07/11/20 18:25 EACH EYE BID PRN Dry Eye(S) Atenolol 25 mg 07/12/20 09:00 07/19/20 08:40 Tenormin PO 25 mg DAILY ARI Administration Docusate Sodium 100 mg 07/12/20 09:00 07/19/20 08:41 Colace Capsule PO Not Given DAILY ARI Fluorometholone 1 drop 07/11/20 21:00 07/19/20 08:40 Fml Liquifilm 0.1% Op Susp EACH EYE 1 drop Q12HR ARI Administration Heparin Sodium (Porcine) 5,000 units 07/11/20 21:00 07/19/20 08:41 Heparin Sodium SUB-Q 5,000 units Q12HR ARI Administration Lidocaine 1 patch 07/11/20 18:25 07/13/20 09:59 Lidoderm TOPICAL 1 patch DAILY PRN Administration Pain Multivitamins/Minerals 1 tablet 07/13/20 09:00 07/19/20 08:41 Ocuvite PO 1 tablet QAM ARI Administration Nitroglycerin 0.4 mg 07/11/20
--- NOTE | 2020-07-19 13:31 | PCDIET ---
Nutrition Follow-Up Complete: Nutrition Diagnosis: Inadequate oral intake r/t reduced appetite as evidenced by 98% of IBW and PO intake of 10% Nutrition Goal: PO intake of 50% of meals and supplements to maintain wt Intake goal met. Average intake from 07/16/20 was 73% of meals on regular, fluid restricted diet. No new recommendations at this time. Last recorded weight is 53.3 kg. Recommend obtaining new weight. Bowel Motility: +BM on 07/18/20. Labs Reviewed: Na (135) Meds Noted: Zovirax, Colace, Heparin, Ocuvite, KCl, Vitamin B/C Complex, Vitamin D, Coumadin Additional Notes: No documented skin breakdown. Will continue to monitor with same goals. Nutrition Monitoring and Evaluation: Follow up every 5 days.
[2020-07-19 14:00] VITALS: BP 138/60; PULSE 56; RESP 18; TEMP 36.4; O2SAT 97
--- NOTE | 2020-07-19 14:18 | PCOTNOTE ---
07/19/20 14:01 Attempted to see patient for afternoon session. Upon therapy arrival patient sitting wheelchair and leaning heavily to left side. Patient reported feeling fatigued and stated has been sitting in wheelchair since morning therapy session ( washing up ). Attempted to reposition patient in wheelchair with maximal/total assistance and patient continued to heavily lean/push toward the left side. Noted difficulty following directions. Notified nursing staff of change in status. Patient transferred to bed with nursing staff and Dr. Perez notified. Vital signs stable per nursing. Noted patient unable to actively raise left upper extremity or maintain place/hold of upper extremity upon return to bed. Patient going for stat CT scan; unable to see for afternoon session/unable to meet minutes this date due to change in medical status. Will follow up as appropriate.
--- NOTE | 2020-07-19 15:18 | PC.NURSE ---
patient found slumped over in chair by nursing staff at 1403. MD updated and pt then taken to CT scan for stat CT. Patient accompanied by nursing staff to CT. Patient then transferred to ICU 10 with ICU staff present with patient. This hand sign writer gave bedside report in ICU 10 to Deb Alvarez RN, Jeannette Perez updated and to call Amira.
--- NOTE | 2020-07-19 16:00 | PCPTNOTE ---
Patient transferred off unit due to medical status change. Unable to complete PT minutes in PM. Alia Packer PTA
--- NOTE | 2020-07-24 11:40 | PM.TDS ---
Transfer Discharge Sum: Prov Provider Date of admission: 07/11/20 14:45 Primary care physician: PHYSICIAN NOT ON STAFF Admitting clinician: Beto Perez MD DS: Admitting Diagnosis Admitting Diagnosis Admitting Diagnosis: TRAUMATIC CLOSED HEAD INJURY DS: Discharge Diagnosis Discharge Diagnosis (1) Intracranial hemorrhage: Code(s): I62.9 - Nontraumatic intracranial hemorrhage, unspecified Status: Acute (2) Status post aortic valve replacement: Code(s): Z95.2 - Presence of prosthetic heart valve Status: Acute (3) Fever blister: Code(s): B00.1 - Herpesviral vesicular dermatitis Status: Acute (4) Hyponatremia: Code(s): E87.1 - Hypo-osmolality and hyponatremia Status: Acute (5) Hypertension: Code(s): I10 - Essential (primary) hypertension Status: Acute (6) Homonymous hemianopsia: Code(s): H53.469 - Homonymous bilateral field defects, unspecified side Status: Acute (7) Hemiparesis of left nondominant side: Code(s): G81.94 - Hemiplegia, unspecified affecting left nondominant side Status: Acute (8) Intracranial hemorrhage: Code(s): I62.9 - Nontraumatic intracranial hemorrhage, unspecified Status: Acute Transfer Discharge Sum: Med Medications Active and Home Medications: Home Medications B-complex with vitamin C [Super B Complex-Vitamin C] 1 tablet PO DAILY 07/11/20 [History Confirmed 07/19/20] acetaminophen 650 mg PO Q6H PRN 07/11/20 [History Confirmed 07/19/20] aspirin 81 mg PO DAILY 07/11/20 [History Confirmed 07/19/20] atenolol 25 mg PO DAILY 07/11/20 [History Confirmed 07/19/20] cholecalciferol (vitamin D3) [Vitamin D3] 50 mcg PO DAILY 07/11/20 [History Confirmed 07/19/20] docusate sodium 100 mg PO DAILY 07/11/20 [History Confirmed 07/19/20] fluorometholone 1 drp OPHTHALMIC (EYE) BID 07/11/20 [History Confirmed 07/19/20] furosemide 20 mg PO DAILY 07/11/20 [History Confirmed 07/19/20] heparin (porcine) 5,000 unit SUBCUT Q12H 07/11/20 [History Confirmed 07/19/20] lidocaine [Lidoderm] 1 patch TOPICAL DAILY PRN 07/11/20 [History Confirmed 07/19/20] nitroglycerin 0.4 mg SUBLINGUAL Q5-15M PRN 07/11/20 [History Confirmed 07/19/20] oxycodone 2.5 mg PO Q4H PRN 07/11/20 [History Confirmed 07/19/20] polyethylene glycol 3350 17 g PO DAILY 07/11/20 [History Confirmed 07/19/20] polyvinyl alcohol 1 drp OPHTHALMIC (EYE) BID PRN 07/11/20 [History Confirmed 07/19/20] potassium chloride 10 meq PO DAILY 07/11/20 [History Confirmed 07/19/20] ramelteon [Rozerem] 8 mg PO HS 07/11/20 [History Confirmed 07/19/20] rosuvastatin [Crestor] 5 mg PO DAILY 07/11/20 [History Confirmed 07/19/20] sennosides [senna] 8.6 mg PO BID 07/11/20 [History Confirmed 07/19/20] warfarin 6 mg PO DAILY 07/11/20 [History Confirmed 07/19/20] Transfer Discharge Sum: Hosp Hospital Course Hospital course: Alba Renteria is a 84 year old female was admitted due to intracranial hemorrhage when she has trauma to her brain she was treated conservatively had a complicated course at [facility] however on the day of transfer she became worse with worsening left-sided hemiparesis and a CT of the brain showed right-sided intracranial hemorrhage with midline shift this examiner was in touch with the family members and also [facility] and they accepted the patient for the transfer the patient stayed in the ICU for couple of days however the family decided and so did the patient that the diet want to be transferred to [facility] the patient was moved to initially to ICU and then to the regular medical floor where I did examine the patient later on and had a discussion with the family and the family finally opted for her to be the hospice care closer to the hospital All option risk in the patient with the benefits were discussed with the patient who really cannot make a decision for herself and also the family member including the 2 daughters and a son who i
== END 2020-07-19 15:20 | disposition short-term general hospital (02) | DRG 949 ==
PROVIDERS: Admitting Provider Psychiatry & Neurology Neurology; Visit Provider Psychiatry & Neurology Neurology
DX: S06.5X0D Traumatic subdural hemorrhage without loss of consciousness, subsequent encounter (principal); E87.1 Hypo-osmolality and hyponatremia; G81.94 Hemiplegia, unspecified affecting left nondominant side; G93.89 Other specified disorders of brain; H53.462 Homonymous bilateral field defects, left side; I25.2 Old myocardial infarction; E87.5 Hyperkalemia; I10 Essential (primary) hypertension; Z95.2 Presence of prosthetic heart valve; Z94.7 Corneal transplant status; B00.1 Herpesviral vesicular dermatitis; Z79.01 Long term (current) use of anticoagulants; W22.8XXD Striking against or struck by other objects, subsequent encounter
CPT/HCPCS: 36415; 70450; 80048; 80061; 85025; 85610; 92507; 92523; 97110; 97112; 97116; 97129; 97130; 97162; 97165; 97530; 97535; 97542; A9270; J1644

== ENCOUNTER 2020-07-19 15:21 | Inpatient (IN) | payer MEDICARE, SELFPAY ==
--- NOTE | ~2020-07-19 | XR_ITS ---
EXAMINATION: XR barium swallow modified DATE: 07/24/2020 11:59 INDICATION: Dysphagia. TECHNIQUE: The patient was given barium-containing material of multiple consistencies to swallow by bishop reyes speech pathologist while I performed fluoroscopy. Dose-area product was 1.4 Gy-cm2. 2.2 minutes fluoroscopy time FINDINGS: Oral Stage: Reduced lingual movement, slow emptying Pharyngeal Phase: Laryngeal penetration and aspiration with fluid Cervical/Esophageal Stage: Within functional limits IMPRESSION: Modified esophagram findings as above. Please [facility] the [facility] Reviewed, dictated and finalized at [facility]. Reviewed, dictated and finalized at [facility]. IMPRESSION: Modified esophagram findings as above. Please refer to the speech t herapy report for specific recommendations.
--- NOTE | 2020-07-19 15:36 | WPDCNINT ---
Assessment and Plan Assessment and plan (1) Intracranial hemorrhage: Code(s): I62.9 - Nontraumatic intracranial hemorrhage, unspecified Status: Acute Assessment and Plan: patient with new intracranial on CT scan done today on 07/19/2022 which showed Acute intracerebral hematoma in right temporal occipital region. 2. Mild nonspecific cerebral white matter disease, which likely represents chronic small vessel ischemic disease. 3. 10 mm hyperdense extra-axial mass inferior to left frontal lobe abutting the falx, consistent with a meningioma. - neurology following the patient, arranging for transfer to [facility] which she initially came from to [facility] - discussed with Neurology, will give Decadron 10 mg IV x1 and then Decadron 6 mg q.4 hours scheduled - will give Keppra 1000 mg IV x1 and then Keppra 500 mg Q 12 hours - antiemetics, antihypertensives p.r.n. maintain SBP does the 150 mmHg - continue neurochecks q.1 hour - obtain coags (2) Hemiparesis of left nondominant side: Code(s): G81.94 - Hemiplegia, unspecified affecting left nondominant side Status: Acute Assessment and Plan: patient is weakness of the left side though she is able to hold it up and move it to commands (3) Hyponatremia: Code(s): E87.1 - Hypo-osmolality and hyponatremia Status: Acute Assessment and Plan: hyponatremia resolving, patient on fluid restriction (4) Hypertension: Code(s): I10 - Essential (primary) hypertension Status: Acute Assessment and Plan: will keep systolic pressures less than 160 mmHg due to intracranial hemorrhage, ordered hydralazine p.r.n. (5) Status post aortic valve replacement: Code(s): Z95.2 - Presence of prosthetic heart valve Status: Acute Assessment and Plan: patient has a history of aortic valve replacement currently not on any anticoagulation Additional Plan DVT prophylaxis: SCDs discuss with Neurology, patient will be transferred to a tertiary care hospital due to her acute intracranial bleed code status: Full code Critical care time spent time spent: 44 minutes Due to a high probability of clinically significant, life threatening deterioration, the patient required my highest level of preparedness to intervene emergently and I personally spent this critical care time directly and personally managing the patient. This critical care time included obtaining a history; examining the patient; pulse oximetry; ordering and review of studies; arranging urgent treatment with development of a management plan; evaluation of patient's response to treatment; frequent reassessment; and discussions with other providers. It was exclusive of separately billable procedures and treating other patients and teaching time. Please see Assessment and Plan section and the rest of the note for further information on patient assessment and treatment [employer] Consult Note Consult date: 07/19/20 Time Seen: 15:36 Reason for consult: encephalopathy, left-sided weakness, acute intra several hepatoma the right temporal occipital region with 4 mm leftward midline shift HPI: Alba Renteria is a 84 year old female with past medical history of myocardial infarction, hypertension, mechanical aortic valve replacement, intraventricular and parieto-occipital intracranial hemorrhage on 06/28/2020. Patient was at [facility] for intracerebral bleed and was discharged to [facility] on 07/12 2020. Patient was on Coumadin for mechanical aortic valve. Patient was transferred to the ICU on 07/19/2020 after she was found less responsive, flaccid on this left side, encephalopathic. Patient was sent for a stat CT scan On 07/19/2020 which showed Acute intracerebral hematoma in right temporal occipital region. 2. Mild nonspecific cerebral white matter disease, which likely represents chronic small vessel ischemic disease. 3. 10 mm hyperde
[2020-07-19 16:00] VITALS: PULSE 57
[2020-07-19] MEDS: levETIRAcetam 1000MG/NACL100ML 1,000 MG/100 ML BAG 400 MG IVPB (16:04)
--- NOTE | 2020-07-19 16:12 | WPDNEURORHBP ---
Subjective Date/time seen: 07/19/20 16:12 Interval history: this 84-year-old woman which was in fact who was examined earlier today was doing fairly well later in the afternoon little past to o'clock there was a change in her neurological status were the left side was flaccid particularly the left arm with slurring of the speech a head CT done revealed right-sided intracranial hemorrhage and midline shift to the other side the findings were discussed with the neuroradiologist also with our ICU colleague here then I put a call to [facility] and finally spoke with Neurosurgery they will accept the transfer once the ICU bed is available for transfer I discussed with her son in detail all option risk in the benefits and updated him about the transfer the questions were answered to the best of my ability to the son Review of Systems Review of Systems: All systems reviewed & are unremarkable except as noted in HPI and below Exam Const: General: comfortable and no acute distress HENMT: General nose exam: Normal nares present Mouth: Yes moist mucous membranes Eyes: General: appearance normal, both eyes and all related structures Other: status post corneal transplant Neck: Neck: supple and no JVD Resp: Effort & Inspection: normal respiratory effort Auscultation: clear to auscultation bilaterally Cardio: Rate: regular rate Rhythm: regular rhythm Other: aortic valve murmur GI: GI Palp: Yes Soft to palpation Auscultation: normal bowel sounds Skin: General skin exam: normal color and no rashes or lesions noted Neuro: Other: there is a change in her mental status which is improving in the ICU where followed the patient in fact the left trauma started getting better I have requested to get her back Decadron and also load her with Keppra Extrem: General: normal to inspection Psych: Other: improving mental status in the past couple of hours Objective Data Meds/Results Medications: Active Medications Generic Name Dose Route Start Last Admin Trade Name Freq PRN Reason Stop Dose Admin Dexamethasone Sodium Phosphate 4 mg 07/19/20 18:00 Decadron 4 Mg/Ml Inj IV PUSH Q6HR ARI Hydralazine HCl 10 mg 07/19/20 15:47 Apresoline Hcl Inj IV PUSH Q4H PRN Blood Pressure - High Levetiracetam 500 mg in 100 mls @ 400 mls/hr 07/19/20 21:00 Keppra Iv IVPB Q12HR ARI Ondansetron HCl 4 mg 07/19/20 15:48 Zofran Inj IV PUSH Q4H PRN Nausea And Vomiting Progress Note: A&P Assessment and Plan (1) Status post aortic valve replacement: Code(s): Z95.2 - Presence of prosthetic heart valve Status: Acute (2) Fever blister: Code(s): B00.1 - Herpesviral vesicular dermatitis Status: Acute (3) Hyponatremia: Code(s): E87.1 - Hypo-osmolality and hyponatremia Status: Acute (4) Hypertension: Code(s): I10 - Essential (primary) hypertension Status: Acute (5) Homonymous hemianopsia: Code(s): H53.469 - Homonymous bilateral field defects, unspecified side Status: Acute (6) Hemiparesis of left nondominant side: Code(s): G81.94 - Hemiplegia, unspecified affecting left nondominant side Status: Acute (7) Intracranial hemorrhage: Code(s): I62.9 - Nontraumatic intracranial hemorrhage, unspecified Status: Acute (8) Intracranial hemorrhage: Code(s): I62.9 - Nontraumatic intracranial hemorrhage, unspecified Status: Acute Additional Plan due to overall child and in the past more than 2 hours have been in touch with the ICU here ICU nurses also [facility] and updated them about the patient's neurological status patient is going to be transferred this afternoon once the ICU bed is available to [facility] ICU I have also discussed the case with the radiologist here attending the possibility of a new bleed versus the same findings as they were present before and of course the
--- NOTE | 2020-07-19 16:38 | ADMGEN ---
This patient, Alba Renteria, was admitted to Intensive Care Unit-10 at 1525. Patient/family oriented to hospital policies and general routines including ID bracelet, bed and alarms, visiting hours, pain management, procedures, bathroom and other care routines, personal items, smoking policy, room service/diet, and visiting hours. Valuables list has been completed. Information on how to activate the Rapid Response Team has been discussed. Patient/Family are encouraged to report perceived risks to care and to ask questions if they do not understand what they are told or what they should do.
[2020-07-19 16:55] LABS: INR 1.1; Prothrombin Time 13.7 Seconds (11.1-14.7)
[2020-07-19 16:56] LABS: Partial Thromboplastin Time 32.4 SECONDS (22.3-36.8)
[2020-07-19 18:00] VITALS: PULSE 57
[2020-07-19] MEDS: DEXAMETHASONE SOD PHOS INJ 4 MG/ML VIAL IV PUSH (18:32)
[2020-07-19 19:45] VITALS: BP 152/47; PULSE 54; RESP 21; O2SAT 93
[2020-07-19] MEDS: hydrALAZINE HCL 20 MG/ML VIAL 10 MG IV PUSH (19:50)
[2020-07-19 20:00] VITALS: BP 114/92; PULSE 67; PULSE 75; RESP 20; O2SAT 96
[2020-07-19] MEDS: levETIRAcetam 500MG/NACL 100ML 500 MG/100 ML BAG 400 MG IVPB (20:11)
[2020-07-19 22:00] VITALS: BP 107/41; PULSE 52; RESP 22; TEMP 36.6; O2SAT 97
[2020-07-20] VITALS: BP 128/43; PULSE 59; PULSE 61; RESP 22; O2SAT 94
[2020-07-20] MEDS: DEXAMETHASONE SOD PHOS INJ 4 MG/ML VIAL IV PUSH ×5 (00:01→23:36)
[2020-07-20 02:00] VITALS: BP 123/42; PULSE 67; RESP 22; O2SAT 95
[2020-07-20 04:00] VITALS: BP 110/50; PULSE 51; PULSE 62; RESP 21; O2SAT 92
[2020-07-20 06:00] VITALS: BP 123/37; PULSE 49; PULSE 54; RESP 19; TEMP 36.4; O2SAT 97
[2020-07-20 07:37] LABS: Hematocrit 37.9 % (37.0-47.0); Hemoglobin 12.8 g/dL (12.0-15.0); Immature Granulocyte Absolute 0.02 K/mm3 (0.00-0.031); Immature Granulocyte Percent A 0.6 % (0-0.5); Lymphocytes Absolute Auto 0.67 K/mm3 (0.9-3.2); Lymphocytes Percent Auto 18.8 % (18.3-44.2); Mean Corpuscular HGB Conc 33.8 g/dl (32-36); Mean Corpuscular Hemoglobin 31.5 pg (26-34); Mean Corpuscular Volume 93.3 fl (80-100); Mean Platelet Volume 9.6 fl (7.4-10.4); Monocytes Absolute Auto 0.2 K/mm3 (0.1-0.6); Monocytes Percent Auto 4.2 % (2.6-8.5); Neutrophils Absolute Auto 2.7 K/mm3 (1.3-6.7); Neutrophils Percent Auto 76.4 % (45.5-73.1); Platelet Count Result 165 k/mm3 (150-375); Red Blood Count 4.06 M/mm3 (4.2-5.4); Red Cell Distribution Width 13.8 % (11.5-14.5); White Blood Count 3.6 K/mm3 (4.5-10.0)
[2020-07-20 08:00] VITALS: BP 124/43; PULSE 59; RESP 20; TEMP 36.6; O2SAT 94
[2020-07-20 08:02] LABS: Alanine Aminotransferase 19 U/L (4-35); Albumin Level 3.4 g/dL (3.5-5.1); Alkaline Phosphatase 74 U/L (38-126); Anion Gap 4 mmol/L (8-16); Aspartate Amino Transferase 29 U/L (14-36); Bilirubin,Total 0.8 mg/dL (0.2-1.3); Blood Urea Nitrogen 11 mg/dL (7-17); Calcium 9.5 mg/dL (8.4-10.2); Carbon Dioxide 28 mmol/L (22-30); Chloride 101 mmol/L (98-107); Estimated CRCL calculation 60 ml/min; Estimated Glomerular Filt Rate > 60; Glucose 128 mg/dL (65-105); Potassium 4.4 mmol/L (3.4-5.0); Sodium 133 mmol/L (137-145)
[2020-07-20] MEDS: levETIRAcetam 500MG/NACL 100ML 500 MG/100 ML BAG 400 MG IVPB ×2 (09:30→21:54)
--- NOTE | 2020-07-20 10:05 | PC.NURSE ---
This patient, Alba Renteria, was transferred to [facility] on 07/20/20 at 1030. Personal belongings sent with patient. Belongings list checked and signed with receiving [ ]. Report given to [REBECCA Carpio ]. Appropriate documentation sent with patient.
--- NOTE | 2020-07-20 10:47 | WPDINTPN ---
Progress Note: A&P Assessment and Plan (1) Intracranial hemorrhage: Code(s): I62.9 - Nontraumatic intracranial hemorrhage, unspecified Status: Acute Assessment and Plan: patient with new intracranial on CT scan done today on 07/19/2022 which showed Acute intracerebral hematoma in right temporal occipital region. 2. Mild nonspecific cerebral white matter disease, which likely represents chronic small vessel ischemic disease. 3. 10 mm hyperdense extra-axial mass inferior to left frontal lobe abutting the falx, consistent with a meningioma. - neurology following the patient, arranging [facility] - continue Decadron and Keppra - antiemetics, antihypertensives p.r.n. maintain SBP does the 150 mmHg - continue neurochecks q.1 hour - coags are within normal limits - patient was made DNR/DNI by by the son with to be transferred to [facility]. (2) Hemiparesis of left nondominant side: Code(s): G81.94 - Hemiplegia, unspecified affecting left nondominant side Status: Acute Assessment and Plan: patient has weakness of the left side though she is able to hold it up and move it to commands (3) Hyponatremia: Code(s): E87.1 - Hypo-osmolality and hyponatremia Status: Acute Assessment and Plan: hyponatremia resolving, patient on fluid restriction (4) Hypertension: Code(s): I10 - Essential (primary) hypertension Status: Acute Assessment and Plan: will keep systolic pressures less than 150 mmHg due to intracranial hemorrhage, ordered hydralazine p.r.n. (5) Status post aortic valve replacement: Code(s): Z95.2 - Presence of prosthetic heart valve Status: Acute Assessment and Plan: patient has a history of aortic valve replacement currently not on any anticoagulation Additional Plan DVT prophylaxis: SCDs code status: DNR/DNI Critical care time spent time spent: 32 minutes Due to a high probability of clinically significant, life threatening deterioration, the patient required my highest level of preparedness to intervene emergently and I personally spent this critical care time directly and personally managing the patient. This critical care time included obtaining a history; examining the patient; pulse oximetry; ordering and review of studies; arranging urgent treatment with development of a management plan; evaluation of patient's response to treatment; frequent reassessment; and discussions with other providers. It was exclusive of separately billable procedures and treating other patients and teaching time. Please see Assessment and Plan section and the rest of the note for further information on patient assessment and treatment Subjective Date/time seen: 07/20/20 10:47 Interval history: Reason for consult: encephalopathy, left-sided weakness, acute intra several hepatoma the right temporal occipital region with 4 mm leftward midline shift 07/20/2020: Family decided against transferred to [facility], was made do not resuscitate and do not intubate. Patient is awake, alert, oriented x3, able to move all extremities and follow commands. Bradycardic, hemodynamically stable. Afebrile, decreased urine output. Denies any shortness of breath, abdominal pain nausea, vomiting Review of Systems Review of Systems: All systems reviewed & are unremarkable except as noted in HPI and below Exam Const: General: comfortable and no acute distress HENMT: Mouth: Yes moist mucous membranes Other: Right facial droop Eyes: Sclera: sclerae normal Pupils: Equal, round and reactive pupils present Neck: Neck: supple Other: posterior neck tenderness Resp: Effort & Inspection: normal respiratory effort Auscultation: clear to auscultation bilaterally Cardio: Rate: regular rate and bradycardic GI: Inspection: non-distended GI Palp: Yes Soft to palpation
--- NOTE | 2020-07-20 14:37 | PM.IMCN ---
Assessment and Plan Assessment and plan (1) Intracranial hemorrhage: Code(s): I62.9 - Nontraumatic intracranial hemorrhage, unspecified Status: Acute Assessment and Plan: Alba Renteria is a 84 year old female with a past medical history with a past medical history of mechanical aortic valve replacement, for which patient was taking warfarin, and myocardial infarction, apparently and early June patient had a stroke her head with car trunk and later developed severe had nausea and vomiting and presented emergency department on June [address] scan of the head and patient had hemorrhagic stroke to further evaluate and manage patient was transferred to [facility], while at the hospital patient remained clinically stayed and my understanding is did not require any surgical intervention see was conservatively managed and was seen by Cardiology and had decided to hold her warfarin, patient was sent to [facility] for rehab and was getting subcu heparin for DVT prophylaxis, on 07/19 patient was found to have slurred speech and left-sided weakness to further evaluate patient had a CT scan of the head which showed Acute intracerebral hematoma in right temporal occipital region. patient was seen by neurologist and rehab physician from [facility] Dr. Perez transfer the patient ICU and Decadron, Keppra and anti emetic was started, the neurologist spoke with Neurosurgery at the [facility] and plan was transfer the patient, however later patient and her family decided not to be transferred and will do conservative management in the hospital, this morning patient states feeling much better she seems to be alert and orient x3, and tells me that she does not want to the [facility] a month so remained here, patient was given sip of water and patient appeared to be having difficulty swallowing will keep the patient NPO, we have been consulted for medical management will discuss with the neurology and further recommendation to follow. I discussed with Dr. Perez I understand patient family has decided to consider hospice care and further recommendation to follow. (2) Hyponatremia: Code(s): E87.1 - Hypo-osmolality and hyponatremia Status: Acute Assessment and Plan: patient with mild hyponatremia and sodium is trending up. (3) Hypertension: Code(s): I10 - Essential (primary) hypertension Status: Acute Assessment and Plan: will continue home regimen and and monitor once patient is able to take p.o. HPI Data of Consult Consult date: 07/20/20 Requesting Physician: Dorothy Covington MD Primary Care Provider: PHYSICIAN NOT ON STAFF Consult Narrative Narrative: Alba Renteria is a 84 year old female with a past medical history with a past medical history of mechanical aortic valve replacement, for which patient was taking warfarin, and myocardial infarction, apparently and early June patient had a stroke her head with car trunk and later developed severe had nausea and vomiting and presented emergency department on June [address] scan of the head and patient had hemorrhagic stroke to further evaluate and manage patient was transferred to [facility], while at the hospital patient remained clinically stayed and my understanding is did not require any surgical intervention see was conservatively managed and was seen by Cardiology and had decided to hold her warfarin, patient was sent to [facility] for rehab and was getting subcu heparin for DVT prophylaxis, on 07/19 patient was found to have slurred speech and left-sided weakness to further evaluate patient had a CT scan of the head which showed Acute intracerebral hematoma in right temporal occipital region. patient was seen by neurologist and rehab physician from [facility] Dr. Perez transfer the patient ICU and Decadron, Keppra and anti emetic was started, the neurologist spoke with Neurosurgery at the [facility] and plan was t
[2020-07-20] MEDS: FLUOROMETHOLONE 0.1% OP SUSP 5 ML BTL 1 DROP EACH EYE ×3 (14:54→21:56)
[2020-07-20 14:56] VITALS: BP 117/51; PULSE 69; RESP 16; TEMP 36.6; O2SAT 96
--- NOTE | 2020-07-20 16:30 | WPDNEURCNPN ---
Assessment and Plan Assessment and plan (1) Intracranial hemorrhage: Code(s): I62.9 - Nontraumatic intracranial hemorrhage, unspecified Status: Acute (2) Status post aortic valve replacement: Code(s): Z95.2 - Presence of prosthetic heart valve Status: Acute (3) Fever blister: Code(s): B00.1 - Herpesviral vesicular dermatitis Status: Acute (4) Hypertension: Code(s): I10 - Essential (primary) hypertension Status: Acute (5) Hyponatremia: Code(s): E87.1 - Hypo-osmolality and hyponatremia Status: Acute (6) Homonymous hemianopsia: Code(s): H53.469 - Homonymous bilateral field defects, unspecified side Status: Acute (7) Hemiparesis of left nondominant side: Code(s): G81.94 - Hemiplegia, unspecified affecting left nondominant side Status: Acute (8) Intracranial hemorrhage: Code(s): I62.9 - Nontraumatic intracranial hemorrhage, unspecified Status: Acute Additional Plan the family collectively have decided to not have the patient transferred to [facility] and they do not want any invasive procedures as the arm mother had a wish that we should not be doing any headache measures to prolong her lI discussed with the daughter Lorena in detail before this dictation all option risk in the benefits were discussed they have made a combined decision for her to be comfort measures only we will continue the present medical management as being done and once the decide the hospice care than hospice will take over Lorena osthaylee whether to repeat CT head scan and I told her that by doing a CT scan we will not do anything different however if she wishes to we will be happy to redo it but she is comfortable with the plan of management at this time and really did not wish her to have another scan for the sake of doing it. If she is here tomorrow I will be more than happy to follow and please put my name so that I can follow her on the list of the pain medication I need to see Consult date: 07/20/20 Time Seen: 15:45 HPI: Alba Renteria is a 84 year old female She is familiar to me from her stay at the rehab and short stay at the intensive care unit the patient did improve while she was in the ICU however still has left-sided deficit which is definitely more so than what she had earlier yesterday she is at times unable to make right decision and family is aware of it the family based on patient's choice has decided for her not to go to [facility] who had accepted her as a transfer in any event the patient did not have any further events the best of my abilities my suspicion is that either she had a rebleed or possibly may have had ischemic stroke and/or seizure she is on dexamethasone and also Keppra Review of Systems Review of Systems: All systems reviewed & are unremarkable except as noted in HPI and below PMFSH Past Medical History Medical History Hypertension Surgical History Surgical History Status post aortic valve replacement Social History Social History Smoking status: Never smoker Alcohol intake: never Substance use: never Gender identity (if verbalized by the patient): Female Spiritual care concerns: No Meds Home Medications and Allergies Home Medications Medication Instructions Recorded Confirmed Type B-complex with vitamin C [Super B 1 tablet PO DAILY 07/11/20 07/19/20 History Complex-Vitamin C] acetaminophen 650 mg PO Q6H PRN 07/11/20 07/19/20 History aspirin 81 mg PO DAILY 07/11/20 07/19/20 History atenolol 25 mg PO DAILY 07/11/20 07/19/20 History cholecalciferol (vitamin D3) 50 mcg PO DAILY 07/11/20 07/19/20 History [Vitamin D3] docusate sodium 100 mg PO DAILY 07/11/20 07/19/20 History fluorometholone 1 drp OPHTHALMIC (EYE) BID 07/11/20 07/19/20 H
[2020-07-21] VITALS: BP 140/52; PULSE 59; RESP 16; TEMP 36.3; O2SAT 94
[2020-07-21] MEDS: DEXAMETHASONE SOD PHOS INJ 4 MG/ML VIAL IV PUSH ×4 (05:23→23:12)
[2020-07-21 08:00] VITALS: BP 120/60; PULSE 60; RESP 16; TEMP 36.4; O2SAT 95; O2SAT 97
[2020-07-21] MEDS: levETIRAcetam 500MG/NACL 100ML 500 MG/100 ML BAG 400 MG IVPB ×2 (09:06→21:24)
[2020-07-21] MEDS: FLUOROMETHOLONE 0.1% OP SUSP 5 ML BTL 1 DROP EACH EYE ×2 (09:07→17:04)
[2020-07-21 10:39] VITALS: O2SAT 95
--- NOTE | 2020-07-21 15:40 | WPDNEUROPN ---
Progress Note: A&P Assessment and Plan (1) Intracranial hemorrhage: Code(s): I62.9 - Nontraumatic intracranial hemorrhage, unspecified Status: Acute (2) Status post aortic valve replacement: Code(s): Z95.2 - Presence of prosthetic heart valve Status: Acute (3) Fever blister: Code(s): B00.1 - Herpesviral vesicular dermatitis Status: Acute (4) Hypertension: Code(s): I10 - Essential (primary) hypertension Status: Acute (5) Homonymous hemianopsia: Code(s): H53.469 - Homonymous bilateral field defects, unspecified side Status: Acute (6) Hemiparesis of left nondominant side: Code(s): G81.94 - Hemiplegia, unspecified affecting left nondominant side Status: Acute (7) Intracranial hemorrhage: Code(s): I62.9 - Nontraumatic intracranial hemorrhage, unspecified Status: Acute Additional Plan continue present medical management the family to decide about the hospice care and consultation with the hospice Review of Systems Review of Systems: All systems reviewed & are unremarkable except as noted in HPI and below Exam Const: General: comfortable and no acute distress HENMT: General nose exam: Normal nares present Mouth: Yes moist mucous membranes Eyes: General: appearance normal, both eyes and all related structures Neck: Neck: supple and no JVD Resp: Effort & Inspection: normal respiratory effort Auscultation: clear to auscultation bilaterally Cardio: Other: cardiac systolic murmur related to aortic valve replaced GI: Auscultation: normal bowel sounds Neuro: Other: patient is awake alert only partially oriented unable to calculate unable to abstract does not even remember that have been see her in the past several days almost every day and talking with her with moderate left-sided hemiparesis Extrem: General: normal to inspection Psych: Other: moderate cognitive deficit Objective Data Vital Signs Vital Signs: Vital Signs - 24 hr 07/21/20 00:00 07/21/20 08:00 07/21/20 10:39 Temperature 36.3 C L 36.4 C L Pulse Rate 59 L 60 Respiratory Rate 16 16 Blood Pressure 140/52 L 120/60 Pulse Oximetry 94 95 95 Intake/Output Intake/Output: Intake & Output 07/18/20 07/19/20 07/20/20 07/21/20 23:59 23:59 23:59 23:59 Intake Total 100 200 100 Output Total 450 300 Balance 100 -250 -200 Meds/Results Medications: Active Medications Generic Name Dose Route Start Last Admin Trade Name Freq PRN Reason Stop Dose Admin Dexamethasone Sodium Phosphate 4 mg 07/19/20 18:00 07/21/20 12:33 Decadron 4 Mg/Ml Inj IV PUSH 4 mg Q6HR ARI Administration Fluorometholone 1 drop 07/20/20 17:00 07/21/20 09:07 Fml Liquifilm 0.1% Op Susp EACH EYE 1 drop BID ARI Administration Hydralazine HCl 10 mg 07/19/20 15:47 07/19/20 19:50 Apresoline Hcl Inj IV PUSH 10 mg Q4H PRN Administration Blood Pressure - High Levetiracetam 500 mg in 100 mls @ 400 mls/hr 07/19/20 21:00 07/21/20 09:21 Keppra Iv IVPB Infused Q12HR ARI Infusion Lidocaine 1 patch 07/20/20 15:14 Lidoderm TOPICAL DAILY PRN Pain Ondansetron HCl 4 mg 07/19/20 15:48 Zofran Inj IV PUSH Q4H PRN Nausea And Vomiting
[2020-07-21 16:00] VITALS: BP 126/68; PULSE 64; RESP 18; TEMP 36.3; O2SAT 95
--- NOTE | 2020-07-21 18:01 | PM.IMPN ---
Progress Note: A&P Assessment and Plan (1) Intracranial hemorrhage: Code(s): I62.9 - Nontraumatic intracranial hemorrhage, unspecified Status: Acute Assessment and Plan: 07/21/20 18:01 Alba Renteria is a 84 year old female with a past medical history with a past medical history of mechanical aortic valve replacement, for which patient was taking warfarin, and myocardial infarction, apparently and early June patient had a stroke her head with car trunk and later developed severe had nausea and vomiting and presented emergency department on June [address] scan of the head and patient had hemorrhagic stroke to further evaluate and manage patient was transferred to [facility], while at the hospital patient remained clinically stayed and my understanding is did not require any surgical intervention see was conservatively managed and was seen by Cardiology and had decided to hold her warfarin, patient was sent to [facility] for rehab and was getting subcu heparin for DVT prophylaxis, on 07/19 patient was found to have slurred speech and left-sided weakness to further evaluate patient had a CT scan of the head which showed Acute intracerebral hematoma in right temporal occipital region. patient was seen by neurologist and rehab physician from [facility] Dr. Perez transfer the patient ICU and Decadron, Keppra and anti emetic was started, the neurologist spoke with Neurosurgery at the [facility] and plan was transfer the patient, however later patient and her family decided not to be transferred and will do conservative management in the hospital, this morning patient states feeling much better she seems to be alert and orient x3, and tells me that she does not want to the [facility] a month so remained here, patient was given sip of water and patient appeared to be having difficulty swallowing will keep the patient NPO, we have been consulted for medical management will discuss with the neurology and further recommendation to follow. I discussed with Dr. Perez I understand patient family has decided to consider hospice care and further recommendation to follow. Today 07/21 is more more somnolent and is seen the left side is much weaker as she not using her left arm, I spoke with Juventino and his white they would like patient to be transferred to hospital near their home and place her under hospice care in [facility], will discuss with the critical care unit nurse tomorrow with a planning. (2) Hyponatremia: Code(s): E87.1 - Hypo-osmolality and hyponatremia Status: Acute Assessment and Plan: patient with mild hyponatremia and sodium is trending up. (3) Hypertension: Code(s): I10 - Essential (primary) hypertension Status: Acute Assessment and Plan: will continue home regimen and and monitor once patient is able to take p.o. Subjective Date/time seen: 07/21/20 18:01 Alba Renteria is a 84 year old female with a past medical history with a past medical history of mechanical aortic valve replacement, for which patient was taking warfarin, and myocardial infarction, apparently and early June patient had a stroke her head with car trunk and later developed severe had nausea and vomiting and presented emergency department on June [address] scan of the head and patient had hemorrhagic stroke to further evaluate and manage patient was transferred to [facility], while at the hospital patient remained clinically stayed and my understanding is did not require any surgical intervention see was conservatively managed and was seen by Cardiology and had decided to hold her warfarin, patient was sent to [facility] for rehab and was getting subcu heparin for DVT prophylaxis, on 07/19 patient was found to have slurred speech and left-sided weakness to further evaluate patient had a CT scan of the head which showed Acute intracerebral hematoma in right temporal occipital region. christiano
--- NOTE | 2020-07-21 18:58 | PC.NURSE ---
1640 Patient s son Juventino Mccarthy want Dr Lee to call him with an update on his mom. I notified Dr Lee of the same. Dr Lee told me to tell Juventino that all patient information will be given to his sister Lorena and she should give him information about his mom. Juventino acknowledged understanding.
[2020-07-21 20:33] VITALS: BP 137/39; PULSE 44; RESP 14; TEMP 36; O2SAT 94
[2020-07-22 00:25] VITALS: TEMP 36.7
[2020-07-22] MEDS: DEXAMETHASONE SOD PHOS INJ 4 MG/ML VIAL IV PUSH ×4 (05:59→23:00)
[2020-07-22 06:02] VITALS: BP 125/58; PULSE 68; RESP 14; TEMP 36.3; O2SAT 99
[2020-07-22] MEDS: FLUOROMETHOLONE 0.1% OP SUSP 5 ML BTL 1 DROP EACH EYE ×2 (09:21→17:18)
[2020-07-22] MEDS: levETIRAcetam 500MG/NACL 100ML 500 MG/100 ML BAG 400 MG IVPB ×2 (09:21→20:11)
[2020-07-22] MEDS: LIDOCAINE 5% PATCH 1 PATCH TOPICAL (10:10)
[2020-07-22 15:25] VITALS: BP 158/46; PULSE 48; RESP 16; TEMP 36.2; O2SAT 92
[2020-07-22] MEDS: SODIUM CHLORIDE 0.9% IV 1,000 ML 75 ML IV CONT (15:43)
--- NOTE | 2020-07-22 15:43 | PCSTNOTE ---
Please refer to the Bedside Swallow Evaluation in the EMR. Please note, silent aspiration cannot be ruled out at bedside.
--- NOTE | 2020-07-22 17:48 | PM.IMPN ---
Progress Note: A&P Assessment and Plan (1) Intracranial hemorrhage: Code(s): I62.9 - Nontraumatic intracranial hemorrhage, unspecified Status: Acute Assessment and Plan: 07/22/20 17:48 Alba Renteria is a 84 year old female with a past medical history with a past medical history of mechanical aortic valve replacement, for which patient was taking warfarin, and myocardial infarction, apparently and early June patient had a stroke her head with car trunk and later developed severe had nausea and vomiting and presented emergency department on June [address] scan of the head and patient had hemorrhagic stroke to further evaluate and manage patient was transferred to [facility], while at the hospital patient remained clinically stayed and my understanding is did not require any surgical intervention see was conservatively managed and was seen by Cardiology and had decided to hold her warfarin, patient was sent to [facility] for rehab and was getting subcu heparin for DVT prophylaxis, on 07/19 patient was found to have slurred speech and left-sided weakness to further evaluate patient had a CT scan of the head which showed Acute intracerebral hematoma in right temporal occipital region. patient was seen by neurologist and rehab physician from [facility] Dr. Perez transfer the patient ICU and Decadron, Keppra and anti emetic was started, the neurologist spoke with Neurosurgery at the [facility] and plan was transfer the patient, however later patient and her family decided not to be transferred and will do conservative management in the hospital, this morning patient states feeling much better she seems to be alert and orient x3, and tells me that she does not want to the [facility] a month so remained here, patient was given sip of water and patient appeared to be having difficulty swallowing will keep the patient NPO, we have been consulted for medical management will discuss with the neurology and further recommendation to follow. I discussed with Dr. Perez I understand patient family has decided to consider hospice care and further recommendation to follow. Today 07/21 is more more somnolent and is seen the left side is much weaker as she not using her left arm, I spoke with Juventino and his white they would like patient to be transferred to hospital near their home and place her under hospice care in [facility], today 07/22 patient had Bedside swallow study in failed, patient is unable to follow the instruction, family has decided against G-tube or PEG, will wait to hear from the family further planning. (2) Hyponatremia: Code(s): E87.1 - Hypo-osmolality and hyponatremia Status: Acute Assessment and Plan: patient with mild hyponatremia and sodium is trending up. (3) Hypertension: Code(s): I10 - Essential (primary) hypertension Status: Acute Assessment and Plan: will continue home regimen and and monitor once patient is able to take p.o. Subjective Date/time seen: 07/22/20 17:48 Alba Renteria is a 84 year old female with a past medical history with a past medical history of mechanical aortic valve replacement, for which patient was taking warfarin, and myocardial infarction, apparently and early June patient had a stroke her head with car trunk and later developed severe had nausea and vomiting and presented emergency department on June [address] scan of the head and patient had hemorrhagic stroke to further evaluate and manage patient was transferred to [facility], while at the hospital patient remained clinically stayed and my understanding is did not require any surgical intervention see was conservatively managed and was seen by Cardiology and had decided to hold her warfarin, patient was sent to [facility] for rehab and was getting subcu heparin for DVT prophylaxis, on 07/19 patient was found to have slurred speech and left-sided weakness to [facility]
[2020-07-22 20:14] VITALS: BP 140/45; PULSE 45; RESP 12; TEMP 35.9; O2SAT 94
[2020-07-23 05:14] VITALS: BP 152/51; PULSE 50; RESP 14; TEMP 36; O2SAT 98
[2020-07-23] MEDS: SODIUM CHLORIDE 0.9% IV 1,000 ML 75 ML IV CONT (05:39)
[2020-07-23] MEDS: DEXAMETHASONE SOD PHOS INJ 4 MG/ML VIAL IV PUSH ×4 (05:40→23:31)
[2020-07-23] MEDS: levETIRAcetam 500MG/NACL 100ML 500 MG/100 ML BAG 400 MG IVPB ×2 (09:32→20:56)
[2020-07-23] MEDS: FLUOROMETHOLONE 0.1% OP SUSP 5 ML BTL 1 DROP EACH EYE ×2 (09:33→16:54)
[2020-07-23] MEDS: LIDOCAINE 5% PATCH 1 PATCH TOPICAL (09:36)
[2020-07-23] MEDS: AMINO ACIDS 4.25%/D5W/LYTES/CA 2,000 ML 80 ML IV CONT (10:24)
[2020-07-23] MEDS: FAT EMULSIONS IV 20% 250 ML 20.8 ML IVPB (10:24)
[2020-07-23 11:45] LABS: Glucose Point of Care 125 (65-105)
[2020-07-23 11:48] LABS: Hematocrit 37.2 % (37.0-47.0); Hemoglobin 12.5 g/dL (12.0-15.0); Immature Granulocyte Absolute 0.06 K/mm3 (0.00-0.031); Immature Granulocyte Percent A 1.2 % (0-0.5); Lymphocytes Absolute Auto 0.48 K/mm3 (0.9-3.2); Lymphocytes Percent Auto 9.8 % (18.3-44.2); Mean Corpuscular HGB Conc 33.6 g/dl (32-36); Mean Corpuscular Hemoglobin 31.6 pg (26-34); Mean Corpuscular Volume 94.2 fl (80-100); Mean Platelet Volume 9.8 fl (7.4-10.4); Monocytes Absolute Auto 0.4 K/mm3 (0.1-0.6); Monocytes Percent Auto 8.4 % (2.6-8.5); Neutrophils Percent Auto 80.6 % (45.5-73.1); Platelet Count Result 159 k/mm3 (150-375); Red Blood Count 3.95 M/mm3 (4.2-5.4); Red Cell Distribution Width 13.4 % (11.5-14.5); White Blood Count 4.9 K/mm3 (4.5-10.0)
[2020-07-23 11:58] LABS: Partial Thromboplastin Time 26.7 SECONDS (22.3-36.8)
[2020-07-23 12:02] LABS: Alanine Aminotransferase 19 U/L (4-35); Albumin Level 3.2 g/dL (3.5-5.1); Alkaline Phosphatase 58 U/L (38-126); Anion Gap 6 mmol/L (8-16); Aspartate Amino Transferase 26 U/L (14-36); Bilirubin,Total 1.3 mg/dL (0.2-1.3); Blood Urea Nitrogen 25 mg/dL (7-17); Calcium 8.8 mg/dL (8.4-10.2); Carbon Dioxide 26 mmol/L (22-30); Chloride 104 mmol/L (98-107); Estimated CRCL calculation 52 ml/min; Estimated Glomerular Filt Rate > 60; Glucose 123 mg/dL (65-105); Magnesium 2.1 mg/dL (1.6-2.3); Potassium 3.7 mmol/L (3.4-5.0); Sodium 136 mmol/L (137-145)
[2020-07-23 12:07] LABS: Transferrin 178 mg/dL (206-381)
[2020-07-23 14:14] VITALS: BP 127/52; PULSE 47; RESP 18; TEMP 36.5; O2SAT 92
--- NOTE | 2020-07-23 14:29 | PM.IMPN ---
Progress Note: A&P Assessment and Plan (1) Intracranial hemorrhage: Code(s): I62.9 - Nontraumatic intracranial hemorrhage, unspecified Status: Acute Assessment and Plan: 07/23/20 14:29 Alba Renteria is a 84 year old female with a past medical history with a past medical history of mechanical aortic valve replacement, for which patient was taking warfarin, and myocardial infarction, apparently and early June patient had a stroke her head with car trunk and later developed severe had nausea and vomiting and presented emergency department on June [address] scan of the head and patient had hemorrhagic stroke to further evaluate and manage patient was transferred to [facility], while at the hospital patient remained clinically stayed and my understanding is did not require any surgical intervention see was conservatively managed and was seen by Cardiology and had decided to hold her warfarin, patient was sent to [facility] for rehab and was getting subcu heparin for DVT prophylaxis, on 07/19 patient was found to have slurred speech and left-sided weakness to further evaluate patient had a CT scan of the head which showed Acute intracerebral hematoma in right temporal occipital region. patient was seen by neurologist and rehab physician from [facility] Dr. Perez transfer the patient ICU and Decadron, Keppra and anti emetic was started, the neurologist spoke with Neurosurgery at the [facility] and plan was transfer the patient, however later patient and her family decided not to be transferred and will do conservative management in the hospital, this morning patient states feeling much better she seems to be alert and orient x3, and tells me that she does not want to the [facility] a month so remained here, patient was given sip of water and patient appeared to be having difficulty swallowing will keep the patient NPO, we have been consulted for medical management will discuss with the neurology and further recommendation to follow. I discussed with Dr. Perez I understand patient family has decided to consider hospice care and further recommendation to follow. on 07/21 is more more somnolent and is seen the left side is much weaker as she not using her left arm, I spoke with Juventino and his white they would like patient to be transferred to hospital near their home and place her under hospice care in [facility], 07/22 patient had Bedside swallow study in failed, patient is unable to follow the instruction, family has decided against G-tube or PEG, will wait to hear from the family further planning. Today on 07/23 started patient on clinimax and lipids IV, her daughter is present in the room, and plan is to transfer the patient to [place] near their [place] in [place], also patient had another swallow study today and did litter better ST is recommending MDS tomorrow, will follow up and plan, will wait to hear from family regarding hospice, will start patient on morphine 2mg IV every 2 hours as needed. (2) Hyponatremia: Code(s): E87.1 - Hypo-osmolality and hyponatremia Status: Acute Assessment and Plan: patient with mild hyponatremia and sodium is trending up. (3) Hypertension: Code(s): I10 - Essential (primary) hypertension Status: Acute Assessment and Plan: will continue home regimen and and monitor once patient is able to take p.o. Subjective Date/time seen: 07/23/20 14:29 Alba Renteria is a 84 year old female with a past medical history with a past medical history of mechanical aortic valve replacement, for which patient was taking warfarin, and myocardial infarction, apparently and early June patient had a stroke her head with car trunk and later developed severe had nausea and vomiting and presented emergency department on June [address] scan of the head and patient had hemorrhagic stroke to further evaluate and manage patient was transferred to [facility]
--- NOTE | 2020-07-23 15:22 | WPDNEUROPN ---
Progress Note: A&P Assessment and Plan (1) Intracranial hemorrhage: Code(s): I62.9 - Nontraumatic intracranial hemorrhage, unspecified Status: Acute (2) Status post aortic valve replacement: Code(s): Z95.2 - Presence of prosthetic heart valve Status: Acute (3) Fever blister: Code(s): B00.1 - Herpesviral vesicular dermatitis Status: Acute (4) Hypertension: Code(s): I10 - Essential (primary) hypertension Status: Acute (5) Homonymous hemianopsia: Code(s): H53.469 - Homonymous bilateral field defects, unspecified side Status: Acute (6) Hemiparesis of left nondominant side: Code(s): G81.94 - Hemiplegia, unspecified affecting left nondominant side Status: Acute (7) Intracranial hemorrhage: Code(s): I62.9 - Nontraumatic intracranial hemorrhage, unspecified Status: Acute Additional Plan continue the present medical management till the patient and the family meet with the hospice team which they are planning to meet at the other hospital have discussed the case with the hospitalist Review of Systems Review of Systems: All systems reviewed & are unremarkable except as noted in HPI and below Exam Const: General: comfortable and no acute distress HENMT: General nose exam: Normal nares present Mouth: Yes moist mucous membranes Eyes: General: appearance normal, both eyes and all related structures Neck: Neck: supple and no JVD Resp: Effort & Inspection: normal respiratory effort Auscultation: clear to auscultation bilaterally Cardio: Rate: regular rate Rhythm: regular rhythm Other: aortic valve murmur GI: Auscultation: normal bowel sounds Skin: General skin exam: normal color and no rashes or lesions noted Neuro: Other: patient is awake alert partially oriented with moderately severe left-sided weakness and also relatively more pronounced left facial week Extrem: General: normal to inspection Psych: Other: [id number] cognitive deficits Objective Data Vital Signs Vital Signs: Vital Signs - 24 hr 07/22/20 15:25 07/22/20 20:14 07/23/20 05:14 Temperature 36.2 C L 35.9 C L 36.0 C L Pulse Rate 48 L 45 L 50 L Respiratory Rate 16 12 14 Blood Pressure 158/46 H 140/45 L 152/51 H Pulse Oximetry 92 94 98 07/23/20 14:14 Temperature 36.5 C Pulse Rate 47 L Respiratory Rate 18 Blood Pressure 127/52 L Pulse Oximetry 92 Intake/Output Intake/Output: Intake & Output 07/20/20 07/21/20 07/22/20 07/23/20 23:59 23:59 23:59 23:59 Intake Total 200 216 084 4763 Output Total 450 300 925 Balance -250 0 -35 1425 Meds/Results Medications: Active Medications Generic Name Dose Route Start Last Admin Trade Name Freq PRN Reason Stop Dose Admin Dexamethasone Sodium Phosphate 4 mg 07/19/20 18:00 07/23/20 14:15 Decadron 4 Mg/Ml Inj IV PUSH 4 mg Q6HR ARI Administration Fluorometholone 1 drop 07/20/20 17:00 07/23/20 09:33 Fml Liquifilm 0.1% Op Susp EACH EYE 1 drop BID ARI Administration Hydralazine HCl 10 mg 07/19/20 15:47 07/19/20 19:50 Apresoline Hcl Inj IV PUSH 10 mg Q4H PRN Administration Blood Pressure - High Levetiracetam 500 mg in 100 mls @ 400 mls/hr 07/19/20 21:00 07/23/20 09:47 Keppra Iv IVPB Infused Q12HR ARI Infusion Acetaminophen 1,000 mg in 100 mls @ 400 mls/hr 07/22/20 20:18 07/22/20 21:22 Ofirmev 1,000 Mg Ivpb IVPB 07/23/20 20:19 Infused Q6H PRN Infusion Pain Rated 4-6 Dextrose 1,000 mls @ 50 mls/hr 07/23/20 09:49 Dextrose 10% IV CONT .Q20H PRN if PN is interrupted Amino Acids/Electrolytes/Dextrose 2,000 mls @ 80 mls/hr 07/23/20 09:50 07/23/20 10:24 Clinimix E 4.25%/5% Solution IV CONT 80 mls/hr .Q24H ARI Administration Protocol Fat Emulsion Intravenous 250 mls @ 20.833 mls/hr 07/23/20 09:50 07/23/20 10:24 Lipids 20% IVPB 20.8 mls/hr Q24H ARI Administration Lidocaine 2 patch 07/23/20 10:57
[2020-07-23] MEDS: MORPHINE SULFATE (*CRX) 2 MG/ML INJ 1 MG IV PUSH (16:51)
[2020-07-23 18:25] LABS: Glucose Point of Care 148 (65-105)
[2020-07-24] VITALS: BP 123/40; PULSE 79; RESP 14; TEMP 36.5; O2SAT 94
[2020-07-24 00:26] LABS: Glucose Point of Care 149 (65-105)
[2020-07-24] MEDS: DEXAMETHASONE SOD PHOS INJ 4 MG/ML VIAL IV PUSH ×4 (05:05→23:42)
[2020-07-24 05:14] LABS: Glucose Point of Care 148 (65-105)
[2020-07-24 06:02] LABS: Anion Gap 3 mmol/L (8-16); Blood Urea Nitrogen 32 mg/dL (7-17); Calcium 8.6 mg/dL (8.4-10.2); Carbon Dioxide 27 mmol/L (22-30); Chloride 101 mmol/L (98-107); Estimated CRCL calculation 62 ml/min; Estimated Glomerular Filt Rate > 60; Glucose 142 mg/dL (65-105); Phosphorus 2.9 mg/dL (2.5-4.5); Potassium 4.3 mmol/L (3.4-5.0); Sodium 131 mmol/L (137-145)
[2020-07-24 09:00] VITALS: O2SAT 96
[2020-07-24] MEDS: AMINO ACIDS 4.25%/D5W/LYTES/CA 2,000 ML 80 ML IV CONT (10:01)
[2020-07-24] MEDS: FAT EMULSIONS IV 20% 250 ML 20.8 ML IVPB (10:05)
[2020-07-24] MEDS: FLUOROMETHOLONE 0.1% OP SUSP 5 ML BTL 1 DROP EACH EYE ×2 (10:08→17:19)
[2020-07-24] MEDS: levETIRAcetam 500MG/NACL 100ML 500 MG/100 ML BAG 400 MG IVPB ×2 (10:09→21:03)
[2020-07-24 11:22] LABS: Triglycerides 174 mg/dL (<150)
[2020-07-24 11:39] LABS: Glucose Point of Care 153 (65-105)
[2020-07-24 14:15] VITALS: BP 131/36; PULSE 43; RESP 20; TEMP 36.3; O2SAT 91
--- NOTE | 2020-07-24 14:34 | WPDNEUROPN ---
Progress Note: A&P Assessment and Plan (1) Intracranial hemorrhage: Code(s): I62.9 - Nontraumatic intracranial hemorrhage, unspecified Status: Acute (2) Status post aortic valve replacement: Code(s): Z95.2 - Presence of prosthetic heart valve Status: Acute (3) Homonymous hemianopsia: Code(s): H53.469 - Homonymous bilateral field defects, unspecified side Status: Acute (4) Hemiparesis of left nondominant side: Code(s): G81.94 - Hemiplegia, unspecified affecting left nondominant side Status: Acute (5) Intracranial hemorrhage: Code(s): I62.9 - Nontraumatic intracranial hemorrhage, unspecified Status: Acute Additional Plan discussed with Lorena again the daughter and the patient which the best of luck their questions were answered to the best of my abilities and they were very appreciative of my follow-up and making them and stand about the gravity of the situation Review of Systems Review of Systems: All systems reviewed & are unremarkable except as noted in HPI and below Exam Const: General: comfortable and no acute distress HENMT: General nose exam: Normal nares present Mouth: Yes moist mucous membranes Eyes: General: appearance normal, both eyes and all related structures Neck: Neck: supple and no JVD Resp: Effort & Inspection: normal respiratory effort Auscultation: clear to auscultation bilaterally Cardio: Other: the aortic murmur from aortic valve replaced GI: Auscultation: normal bowel sounds Neuro: Other: patient is awake alert partially oriented follows commands with rather now dense left-sided hemiparesis left-sided neglect and of course with dysphagia Extrem: General: normal to inspection Psych: Other: moderate cognitive deficit and unable to make rational decision Objective Data Vital Signs Vital Signs: Vital Signs - 24 hr 07/24/20 00:00 07/24/20 09:00 07/24/20 14:15 Temperature 36.5 C 36.3 C L Pulse Rate 79 43 L Respiratory Rate 14 20 Blood Pressure 123/40 L 131/36 L Pulse Oximetry 94 96 91 Intake/Output Intake/Output: Intake & Output 07/21/20 07/22/20 07/23/20 07/24/20 23:59 23:59 23:59 23:59 Intake Total 502 849 5185 2100 Output Total 300 925 600 475 Balance 0 -35 1175 1625 Meds/Results Medications: Active Medications Generic Name Dose Route Start Last Admin Trade Name Freq PRN Reason Stop Dose Admin Dexamethasone Sodium Phosphate 4 mg 07/19/20 18:00 07/24/20 12:18 Decadron 4 Mg/Ml Inj IV PUSH 4 mg Q6HR ARI Administration Fluorometholone 1 drop 07/20/20 17:00 07/24/20 10:08 Fml Liquifilm 0.1% Op Susp EACH EYE 1 drop BID ARI Administration Hydralazine HCl 10 mg 07/19/20 15:47 07/19/20 19:50 Apresoline Hcl Inj IV PUSH 10 mg Q4H PRN Administration Blood Pressure - High Levetiracetam 500 mg in 100 mls @ 400 mls/hr 07/19/20 21:00 07/24/20 10:24 Keppra Iv IVPB Infused Q12HR ARI Infusion Dextrose 1,000 mls @ 50 mls/hr 07/23/20 09:49 Dextrose 10% IV CONT .Q20H PRN if PN is interrupted Amino Acids/Electrolytes/Dextrose 2,000 mls @ 80 mls/hr 07/23/20 09:50 07/24/20 10:01 Clinimix E 4.25%/5% Solution IV CONT 80 mls/hr .Q24H ARI Administration Protocol Fat Emulsion Intravenous 250 mls @ 20.833 mls/hr 07/23/20 09:50 07/24/20 10:05 Lipids 20% IVPB 20.8 mls/hr Q24H ARI Administration Lidocaine 2 patch 07/23/20 10:57 Lidoderm TOPICAL DAILY PRN Pain Morphine Sulfate 1 mg 07/23/20 14:03 07/23/20 16:51 Morphine Sulfate Inj (*Crx) IV PUSH 1 mg Q2H PRN Administration pain 7-10 Ondansetron HCl 4 mg 07/19/20 15:48 Zofran Inj IV PUSH Q4H PRN Nausea And Vomiting Labs Labs: Laboratory Results - last 24 hr 07/23/20 07/24/20 07/24/20 18:23 00:23 05:08 Sodium Potassium Chloride Carbon Dioxide Anion Gap BUN Creatinine Estim Creat Clear Calc
--- NOTE | 2020-07-24 16:09 | PM.IMPN ---
Progress Note: A&P Assessment and Plan (1) Intracranial hemorrhage: Code(s): I62.9 - Nontraumatic intracranial hemorrhage, unspecified Status: Acute Assessment and Plan: 07/24/20 16:09 Alba Renteria is a 84 year old female with a past medical history with a past medical history of mechanical aortic valve replacement, for which patient was taking warfarin, and myocardial infarction, apparently and early June patient had a stroke her head with car trunk and later developed severe had nausea and vomiting and presented emergency department on June [address] scan of the head and patient had hemorrhagic stroke to further evaluate and manage patient was transferred to [facility], while at the hospital patient remained clinically stayed and my understanding is did not require any surgical intervention see was conservatively managed and was seen by Cardiology and had decided to hold her warfarin, patient was sent to [facility] for rehab and was getting subcu heparin for DVT prophylaxis, on 07/19 patient was found to have slurred speech and left-sided weakness to further evaluate patient had a CT scan of the head which showed Acute intracerebral hematoma in right temporal occipital region. patient was seen by neurologist and rehab physician from [facility] Dr. Perez transfer the patient ICU and Decadron, Keppra and anti emetic was started, the neurologist spoke with Neurosurgery at the [facility] and plan was transfer the patient, however later patient and her family decided not to be transferred and will do conservative management in the hospital, this morning patient states feeling much better she seems to be alert and orient x3, and tells me that she does not want to the [facility] a month so remained here, patient was given sip of water and patient appeared to be having difficulty swallowing will keep the patient NPO, we have been consulted for medical management will discuss with the neurology and further recommendation to follow. I discussed with Dr. Perez I understand patient family has decided to consider hospice care and further recommendation to follow. on 07/21 is more more somnolent and is seen the left side is much weaker as she not using her left arm, I spoke with Juventino and his white they would like patient to be transferred to hospital near their home and place her under hospice care in [facility], 07/22 patient had Bedside swallow study in failed, patient is unable to follow the instruction, family has decided against G-tube or PEG, will wait to hear from the family further planning. Today on 07/23 started patient on clinimax and lipids IV, her daughter is present in the room, and plan is to transfer the patient to [place] near their home in [place], also patient had another swallow study 07/23 and did litter better ST recommended MDS tomorrow, Today 07/24 patient had a modified swallow study unfortunately patient failed again, will continue clinimax and lipids, today patient's daughter Lorena is present in the room, the planning hospice at their home, will wait to hear from family regarding hospice arrangement and possibly discharge the patient tomorrow, will start patient on morphine 2mg IV every 2 hours as needed. (2) Hyponatremia: Code(s): E87.1 - Hypo-osmolality and hyponatremia Status: Acute Assessment and Plan: patient with mild hyponatremia and sodium was trending up. (3) Hypertension: Code(s): I10 - Essential (primary) hypertension Status: Acute Assessment and Plan: will continue home regimen and and monitor once patient is able to take p.o. Subjective Date/time seen: 07/24/20 16:09 Alba Renteria is a 84 year old female with a past medical history with a past medical history of mechanical aortic valve replacement, for which patient was taking warfarin, and myocardial infarction, apparently and early June patient had a stroke her head with car trun
--- NOTE | 2020-07-24 16:10 | PCSTNOTE ---
Due to the severity of this patient's condition, direct Speech Therapy for swallowing strengthening exercises is not recommended as it is felt further ST at this time will not elicit a positive result. She is being discharged with goals not achieved.
[2020-07-24 17:41] LABS: Glucose Point of Care 164 (65-105)
[2020-07-24] MEDS: LIDOCAINE 5% PATCH 2 PATCH TOPICAL (19:14)
[2020-07-24 20:12] VITALS: BP 133/38; PULSE 48; RESP 18; TEMP 36.1; O2SAT 93
[2020-07-24] MEDS: MORPHINE SULFATE (*CRX) 2 MG/ML INJ 1 MG IV PUSH (21:07)
[2020-07-24 23:48] LABS: Glucose Point of Care 162 (65-105)
[2020-07-25 04:40] VITALS: BP 135/45; PULSE 48; RESP 12; TEMP 36.6; O2SAT 98
[2020-07-25] MEDS: DEXAMETHASONE SOD PHOS INJ 4 MG/ML VIAL IV PUSH (05:13)
[2020-07-25 05:44] LABS: Glucose Point of Care 151 (65-105)
[2020-07-25 06:16] LABS: Basophils Percent Auto 0.2 % (0.2-1.2); Hematocrit 36.6 % (37.0-47.0); Hemoglobin 12.6 g/dL (12.0-15.0); Immature Granulocyte Absolute 0.09 K/mm3 (0.00-0.031); Immature Granulocyte Percent A 1.6 % (0-0.5); Immature Platelet Fraction Pct 3.2 % (0.9-11.2); Lymphocytes Percent Auto 8.6 % (18.3-44.2); Mean Corpuscular HGB Conc 34.4 g/dl (32-36); Mean Corpuscular Hemoglobin 30.8 pg (26-34); Mean Corpuscular Volume 89.5 fl (80-100); Mean Platelet Volume 10.1 fl (7.4-10.4); Monocytes Absolute Auto 0.6 K/mm3 (0.1-0.6); Monocytes Percent Auto 9.5 % (2.6-8.5); Neutrophils Absolute Auto 4.7 K/mm3 (1.3-6.7); Neutrophils Percent Auto 80.1 % (45.5-73.1); Platelet Count Result 141 k/mm3 (150-375); Red Blood Count 4.09 M/mm3 (4.2-5.4); Red Cell Distribution Width 13.2 % (11.5-14.5); White Blood Count 5.8 K/mm3 (4.5-10.0)
[2020-07-25 06:32] LABS: Alanine Aminotransferase 17 U/L (4-35); Alkaline Phosphatase 50 U/L (38-126); Anion Gap 3 mmol/L (8-16); Aspartate Amino Transferase 26 U/L (14-36); Bilirubin,Total 0.8 mg/dL (0.2-1.3); Blood Urea Nitrogen 28 mg/dL (7-17); Calcium 8.5 mg/dL (8.4-10.2); Carbon Dioxide 26 mmol/L (22-30); Chloride 102 mmol/L (98-107); Estimated CRCL calculation 62 ml/min; Estimated Glomerular Filt Rate > 60; Glucose 137 mg/dL (65-105); Magnesium 2.5 mg/dL (1.6-2.3); Potassium 4.5 mmol/L (3.4-5.0); Sodium 131 mmol/L (137-145)
[2020-07-25] MEDS: levETIRAcetam 500MG/NACL 100ML 500 MG/100 ML BAG 400 MG IVPB (09:28)
[2020-07-25] MEDS: FLUOROMETHOLONE 0.1% OP SUSP 5 ML BTL 1 DROP EACH EYE (09:29)
--- NOTE | 2020-07-25 10:06 | PM.DS ---
DS: Admitting Diagnosis Admitting Diagnosis Admitting Diagnosis: Brain Bleed DS: Discharge Diagnosis Discharge Diagnosis (1) Intracranial hemorrhage: Code(s): I62.9 - Nontraumatic intracranial hemorrhage, unspecified Status: Acute Assessment and Plan: 07/24/20 16:09 Alba Renteria is a 84 year old female with a past medical history with a past medical history of mechanical aortic valve replacement, for which patient was taking warfarin, and myocardial infarction, apparently and early June patient had a stroke her head with car trunk and later developed severe had nausea and vomiting and presented emergency department on June [address] scan of the head and patient had hemorrhagic stroke to further evaluate and manage patient was transferred to [facility], while at the hospital patient remained clinically stayed and my understanding is did not require any surgical intervention see was conservatively managed and was seen by Cardiology and had decided to hold her warfarin, patient was sent to [facility] for rehab and was getting subcu heparin for DVT prophylaxis, on 07/19 patient was found to have slurred speech and left-sided weakness to further evaluate patient had a CT scan of the head which showed Acute intracerebral hematoma in right temporal occipital region. patient was seen by neurologist and rehab physician from [facility] Dr. Perez transfer the patient ICU and Decadron, Keppra and anti emetic was started, the neurologist spoke with Neurosurgery at the [facility] and plan was transfer the patient, however later patient and her family decided not to be transferred and will do conservative management in the hospital, this morning patient states feeling much better she seems to be alert and orient x3, and tells me that she does not want to the [facility] a month so remained here, patient was given sip of water and patient appeared to be having difficulty swallowing will keep the patient NPO, we have been consulted for medical management will discuss with the neurology and further recommendation to follow. I discussed with Dr. Perez I understand patient family has decided to consider hospice care and further recommendation to follow. on 07/21 is more more somnolent and is seen the left side is much weaker as she not using her left arm, I spoke with Juventino and his white they would like patient to be transferred to hospital near their home and place her under hospice care in [facility], 07/22 patient had Bedside swallow study in failed, patient is unable to follow the instruction, family has decided against G-tube or PEG, will wait to hear from the family further planning. Today on 07/23 started patient on clinimax and lipids IV, her daughter is present in the room, and plan is to transfer the patient [place], also patient had another swallow study 07/23 and did litter better ST recommended MDS tomorrow, Today 07/24 patient had a modified swallow study unfortunately patient failed again, will continue clinimax and lipids, today patient's daughter Lorena is present in the room, the planning hospice at their home, will wait to hear from family regarding hospice arrangement and possibly discharge the patient tomorrow, will start patient on morphine 2mg IV every 2 hours as needed. (2) Hyponatremia: Code(s): E87.1 - Hypo-osmolality and hyponatremia Status: Acute Assessment and Plan: patient with mild hyponatremia and sodium was trending up. (3) Hypertension: Code(s): I10 - Essential (primary) hypertension Status: Acute Assessment and Plan: will continue home regimen and and monitor once patient is able to take p.o. DS: Summary Hospital Course Reason for hospitalization: Alba Renteria is a 84 year old female with a past medical history with a past medical history of mechanical aortic valve replacement, for which patient was taking warfarin, an
[2020-07-25] MEDS: MORPHINE SULFATE (*CRX) 2 MG/ML INJ 1 MG IV PUSH (10:12)
--- NOTE | 2020-07-25 10:58 | WPDNEUROPN ---
Progress Note: A&P Assessment and Plan (1) Intracranial hemorrhage: Code(s): I62.9 - Nontraumatic intracranial hemorrhage, unspecified Status: Acute (2) Status post aortic valve replacement: Code(s): Z95.2 - Presence of prosthetic heart valve Status: Acute (3) Hypertension: Code(s): I10 - Essential (primary) hypertension Status: Acute (4) Homonymous hemianopsia: Code(s): H53.469 - Homonymous bilateral field defects, unspecified side Status: Acute (5) Hemiparesis of left nondominant side: Code(s): G81.94 - Hemiplegia, unspecified affecting left nondominant side Status: Acute Additional Plan stable with the treatment plan as such Review of Systems Review of Systems: All systems reviewed & are unremarkable except as noted in HPI and below Exam Narrative: Exam Narrative: reveals her to be comfortable ear nose throat examination normal with no rhinorrhea neck is supple heart regular with murmur lungs clear with no crepitations neuro examination is essentially unchanged Objective Data Vital Signs Vital Signs: Vital Signs - 24 hr 07/24/20 14:15 07/24/20 20:12 07/25/20 04:40 Temperature 36.3 C L 36.1 C L 36.6 C Pulse Rate 43 L 48 L 48 L Respiratory Rate 20 18 12 Blood Pressure 131/36 L 133/38 L 135/45 L Pulse Oximetry 91 93 98 Intake/Output Intake/Output: Intake & Output 07/22/20 07/23/20 07/24/20 07/25/20 23:59 23:59 23:59 23:59 Intake Total 890 1775 3011 969 Output Total 925 741 903 1320 Balance -35 1175 2436 -231 Meds/Results Medications: Active Medications Generic Name Dose Route Start Last Admin Trade Name Freq PRN Reason Stop Dose Admin Dexamethasone Sodium Phosphate 4 mg 07/19/20 18:00 07/25/20 05:13 Decadron 4 Mg/Ml Inj IV PUSH 4 mg Q6HR ARI Administration Fluorometholone 1 drop 07/20/20 17:00 07/25/20 09:29 Fml Liquifilm 0.1% Op Susp EACH EYE 1 drop BID ARI Administration Hydralazine HCl 10 mg 07/19/20 15:47 07/19/20 19:50 Apresoline Hcl Inj IV PUSH 10 mg Q4H PRN Administration Blood Pressure - High Levetiracetam 500 mg in 100 mls @ 400 mls/hr 07/19/20 21:00 07/25/20 10:14 Keppra Iv IVPB Infused Q12HR ARI Infusion Dextrose 1,000 mls @ 50 mls/hr 07/23/20 09:49 Dextrose 10% IV CONT .Q20H PRN if PN is interrupted Amino Acids/Electrolytes/Dextrose 2,000 mls @ 80 mls/hr 07/23/20 09:50 07/25/20 04:53 Clinimix E 4.25%/5% Solution IV CONT 80 mls/hr .Q24H ARI Infusion Protocol Fat Emulsion Intravenous 250 mls @ 20.833 mls/hr 07/23/20 09:50 07/24/20 22:29 Lipids 20% IVPB Infused Q24H ARI Infusion Lidocaine 2 patch 07/23/20 10:57 07/24/20 19:14 Lidocaine 5% Patch TOPICAL 0.5 patch DAILY PRN Administration Pain Morphine Sulfate 1 mg 07/23/20 14:03 07/25/20 10:12 Morphine Sulfate Inj (*Crx) IV PUSH 1 mg Q2H PRN Administration pain 7-10 Ondansetron HCl 4 mg 07/19/20 15:48 Zofran Inj IV PUSH Q4H PRN Nausea And Vomiting Radiology Results: ITS Impressions Modified Barium Swallow 07/24/20 14:46 IMPRESSION: Modified esophagram findings as above. Please refer to the speech therapy report for specific recommendations. Labs Labs: Laboratory Results - last 24 hr 07/24/20 07/24/20 07/24/20 10:43 11:29 17:36 WBC RBC Hgb Hct MCV MCH MCHC RDW Plt Count MPV Immature Gran % (Auto) Neut % (Auto) Lymph % (Auto) [place] % (Auto) Eos % (Auto) Baso % (Auto) Lymph # (Auto) [place] # (Auto) Eos # (Auto) Baso # (Auto) Abs Immat Gran (auto) Absolute Neuts (auto) Absolute Nucleated RBC Nucleated RBC % % Immature Plt Fraction Sodium Potassium Chloride Carbon Dioxide Anion Gap BUN Creatinine Estim Creat Clear Calc Estimated GFR Glucose POC Capillary Glucose 153 H 164 H Ca
== END 2020-07-25 11:55 | disposition hospice, home (50) | DRG 65 ==
LOC: ANH3MED 07-25 10:06 → ANHICU 07-26 14:20
PROVIDERS: Admitting Provider Internal Medicine; Visit Provider Family Medicine
DX: I62.9 Nontraumatic intracranial hemorrhage, unspecified (principal); G93.49 Other encephalopathy; G81.94 Hemiplegia, unspecified affecting left nondominant side; E87.1 Hypo-osmolality and hyponatremia; H53.469 Homonymous bilateral field defects, unspecified side; R13.10 Dysphagia, unspecified; R47.81 Slurred speech; I10 Essential (primary) hypertension; B00.1 Herpesviral vesicular dermatitis; Z66 Do not resuscitate; I25.2 Old myocardial infarction; Z79.01 Long term (current) use of anticoagulants; Z79.82 Long term (current) use of aspirin; Z79.899 Other long term (current) drug therapy; Z95.2 Presence of prosthetic heart valve
CPT/HCPCS: 36415; 80048; 80053; 83735; 84100; 84466; 84478; 85025; 85055; 85610; 85730; 92526; 92610; 92611; A9270; J0131; J0360; J1100; J1953; J2270; J7030